=== PATIENT | female | born 1955 | race Caucasian/White ===

== ENCOUNTER → 2017-08-11 10:08 | Outpatient (CLI) | payer OTHER, SELFPAY ==
--- NOTE | 2017-08-11 10:11 | HPBD_ITS ---
STUDY: DUAL ENERGY X-RAY ABSORPTIOMETRY / DXA REASON FOR EXAM: Female, 61 years old. The patient is postmenopausal. Loss of height. TECHNIQUE: Bone Mineral Density (BMD) measurements of lumbar spine and bilateral hips were obtained. COMPARISON: None. FINDINGS: Lumbar Spine (L1-L4): g/cm2 (0.680) / T-score (-4.3) / Z-score (-3.1) Findings are suggestive of osteoporosis with a high fracture risk. Increased kyphosis. Left Femur Total: g/cm2 (0.732) / T-score (-2.2) / Z-score (-1.2) Left Femoral Neck: g/cm2 (0.771) / T-score (-1.9) / Z-score (-0.7) Right Femur Total: g/cm2 (0.754) / T-score (-2.0) / Z-score (-1.1) Right Femoral Neck: g/cm2 (0.789) / T-score (-1.8) / Z-score (-0.5) HPBD/Dexa Bone Density Study (HP) IMPRESSION: The patient is considered osteoporotic as outlined below according to World [place] [employer] Organization (WHO) criteria with a high fracture risk. Reference Information: The T-score is the number of standard deviations above or below the standard which is normal for young adults at their peak bone mineral density. The World Health Organization (WHO) interprets the T-scores as follows: Above -1 Normal bone density Between -1 and -2.5 Osteopenia Equal to / or below -2.5 Osteoporosis As a practical clinical guideline, osteopenia may be graded as follows: Mild -1 through -1.5 Moderate -1.6 through -2.0 Severe -2.1 through -2.4 The Z-score is the number of standard deviations above or below age-matched controls. A Z-score of less than -1.5 would be considered abnormal. References: 1. NIH Osteoporosis and Related Bone Diseases http://www.osteo.org 2. International Society for Clinical Densitometry http://www.iscd.org 3. National Osteoporosis Foundation http://www.nof.org Electronically Signed: Thomas Alan MD at 12:41 EST Tel [phone], Service support ,
--- NOTE | 2017-08-11 10:11 | HPBI_ITS ---
MAMMOGRAPHY - BILATERAL SCREENING REASON FOR EXAM: Female, 61 years old. Routine annual screening examination. PERTINENT HISTORY: Non-contributory. TECHNIQUE: Digital bilateral breast emir (3D mammographic acquisition) in the CC and MLO projections. 2-D mediolateral oblique (MLO) and craniocaudad (CC) views of both breasts were obtained. CAD: Full Field Digital Mammography with Computer Added Detection was performed. COMPARISON: Comparison is made with prior outside examination dated October 31, 2012. FINDINGS: Breast Composition: The breasts are heterogeneously dense, which may obscure small masses. There are no dominant masses or suspicious calcifications. No other significant abnormalities are identified. There has been no significant change since the prior study. HPBI/SCREENING MAMM (CAD), BILAT IMPRESSION: Stable bilateral screening mammogram. Yearly follow-up mammogram recommended. (A) ASSESSMENT CATEGORY: BIRADS Category 1: Negative. A letter regarding these results will be sent to the patient by the facility within 30 days. Approximately 10% of breast cancers are not detected by mammography. A normal mammogram should not delay biopsy of a clinically suspicious abnormality. [id number] Electronically Signed: Thomas Alan MD at 15:27 EST Tel [phone], Service support ,
== END ==
PROVIDERS: Family Provider Family Medicine; PCP Family Medicine; Visit Provider Family Medicine
DX: Z12.31 Encounter for screening mammogram for malignant neoplasm of breast (principal); Z78.0 Asymptomatic menopausal state; M81.0 Age-related osteoporosis without current pathological fracture
CPT/HCPCS: 77063; 77067; 77080

== ENCOUNTER → 2017-08-15 10:28 | Outpatient (CLI) | payer OTHER, SELFPAY ==
--- NOTE | 2017-08-15 10:44 | RAD_ITS ---
STUDY: X-RAY - LUMBAR SPINE REASON FOR EXAM: Female, 61 years old. Pain. TECHNIQUE: 5 view(s) of the lumbar spine were obtained. COMPARISON: None FINDINGS: Normal lumbar lordosis. There is no substantial scoliosis. There is 5 mm anterolisthesis of L3 on L4. Otherwise normal alignment. Normal vertebral bodies and endplates. Moderate to severe loss of disc height at L4-L5. Otherwise mild loss of disc height at all other levels. There is no demonstrated fracture. The soft tissue structures are unremarkable. RAD/L/S Spine Min 4 Views IMPRESSION: No acute abnormality. Degenerative changes. Electronically Signed: Fernando Oropeza MD at 17:09 EST , Service support ,
== END ==
PROVIDERS: Family Provider Family Medicine; PCP Family Medicine; Visit Provider Family Medicine
DX: M54.5 Low back pain (principal)
CPT/HCPCS: 72110

== ENCOUNTER → 2018-02-10 12:35 | Outpatient (CLI) | payer OTHER, SELFPAY ==
--- NOTE | 2018-02-10 12:45 | RAD_ITS ---
STUDY: X-RAY - PELVIS AND BILATERAL HIPS REASON FOR EXAM: Female, 62 years old. Pain. TECHNIQUE: Radiological exam, hip, bilateral, with pelvis when performed; 2 views COMPARISON: None. FINDINGS: There is a non-specific bowel gas pattern. Normal visualized soft tissue structures. Normal bilateral iliac wings, sacroiliac joints and visualized sacrum. Normal bilateral superior and inferior pubic rami. Normal pubic symphysis. Normal bilateral ischial tuberosities. There is a degenerative spur of the inferior medial aspect of the right femoral head. Normal right acetabulum. There is mild articular joint space narrowing of the right hip. There is a degenerative spur of the inferior medial aspect of the left femoral head. Normal left acetabulum. There is mild articular joint space narrowing of the left hip. RAD/Hips B/L min 2 views w/ Pelvis IMPRESSION: Mild degenerative changes of the bilateral hips. Electronically Signed: Elmo Amador MD at 10:07 EDT Tel , Service support ,
== END ==
PROVIDERS: Family Provider Family Medicine; PCP Family Medicine; Visit Provider Family Medicine
DX: M25.559 Pain in unspecified hip (principal)
CPT/HCPCS: 73521

== ENCOUNTER → 2018-03-01 12:08 | Outpatient (CLI) | payer OTHER, SELFPAY ==
[2018-03-01 14:11] LABS: Absolute Lymphocyte Count 1.77 X10^3/ul (0.83-4.51); Absolute Neutrophil Count 2.2 X10^3/uL (2.0-7.7); Basophil# 0.02 X10^3/uL; Basophil% 0.4 % (0-1); Eosinophil# 0.18 X10^3/uL; Eosinophils% 3.9 % (0-5); Hematocrit 42.5 % (37-47); Hemoglobin 14.2 g/dl (12.0-15.0); Lymphocyte # 1.77 X10^3/ul (4.0); Lymphocyte % 38.5 % (19-41); Mean Corp Hgb Conc 33.4 g/gl (32-36); Mean Corpuscular Hgb 29.2 pg (27.0-32.0); Mean Corpuscular Volume 87.4 fL (81-99); Mean Platelet Vol. 9.9 fl (6.2-12.0); Monocyte# 0.43 X10^3/uL; Monocyte% 9.3 % (0-10); Neutrophil % 47.9 % (47-70); Platelet Count 271 K/mm3 (150-450); RBC Distribution Width CV 13.7 % (11.6-14.6); RBC Distribution Width SD 43.6 fl (35.1-43.9); Red Blood Count 4.86 M/mm3 (4.2-5.4); White Blood Count 4.6 K/mm3 (4.4-11.0)
[2018-03-01 14:15] LABS: POSITIVE COUNT NO; POSITIVE DIFFERENTIAL NO; POSITIVE MORPHOLOGY NO
[2018-03-01 14:50] LABS: ALB/GLOB Ratio 1.2 RATIO (0.9-2.4); AST(SGOT) 18 U/L (15-37); Alanine Aminotransfer ALT/SGPT 34 U/L (13-56); Albumin, Serum 4.1 g/dL (3.2-5.0); Alkaline Phosphatase 67 U/L (45-117); Anion Gap 12 (5-15); BUN 17 mg/dL (7-18); BUN/Creat Ratio 33.3 RATIO (10-20); Calcium,Total 9.7 mg/dL (8.5-10.1); Chloride 102 mmol/L (98-107); Creatinine, Serum 0.51 mg/dL (0.55-1.02); EST Glomerular Filtration Rate 130 mL/min (>60); Est Glom Filt Rate - Afr Amer 157 mL/min (>60); Globulin 3.5 g/dL (2.2-4.2); Glucose 85 mg/dL (74-106); Potassium 3.5 mmol/L (3.5-5.1); Protein, Total 7.6 g/dL (6.4-8.2); Sodium Level 140 mmol/L (136-145); Thyroid Stim Hormone (TSH) 0.78 uIU/mL (0.358-3.74)
== END ==
PROVIDERS: Family Provider Family Medicine; PCP Family Medicine; Visit Provider Family Medicine
DX: R11.0 Nausea (principal)
CPT/HCPCS: 36415; 80053; 84443; 85025

== ENCOUNTER 2018-04-14 07:00 | Outpatient (RCR) | payer OTHER, SELFPAY ==
--- NOTE | 2018-02-14 09:00 | HP.PTEVAL ---
Patient's Visit Information GENE NUNEZ is a 62 year old F referred to Physical Therapy by Aleksey Alonso with a diagnosis of B hip pain. Date of Evaluation: 02/14/18 Physical Therapist: Gerardo Tai PT, - Visit Plan Frequency: 2-3x /Week Duration: 4 Weeks Plan: B LE strengthening, core stabilization ex's, balance and proprio, nustep, and HEP - Subjective Subjective: Pt reports she has had B hip pain for a long time. Pt reports she was diagnosed over the years as having hip bursitis, but now her DrFei believes there is more wrong. Pt reports her L hip is the worst. Pt reports she was recently diagnosed with having osteoporosis. 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 Sleep diff secondary to pain. Pt reports walking causes her increased pain. Pt reports her worst pain is in her L groin region. Pt reports she also has LBP that extends into B LE's intermittently. Pt notes she has worked out her whole life, but is unable to secondary to her pain. 1/10 pain in B hips at rest, 9/10 at worst (walking and at night time). Pt notes occasional difficulty with stair negotiation. - Pain B hips Pain Intensity (Out of 10): 1 Pain Intensity Range: 9 - Objective Neuro: Pt is hyposensitive on L5-S1 dermatones. All other B LE sensation is WNL to light touch. B patellar reflex= 2/3. ROM: B LE's are WNL. MMT: B hip flex, IR, and ER= 4-/5. All other LE measurements 5/5 throughout. Leg length: equal bilat. Special testing: Pt has a pos quadrant test bilat indicating hip joint pathology - Goals Goal 1:: Decrease B hip pain x 50% to aid with sleep Goal Time Frame: 2-4 Weeks Goal 2:: Increase B LE strength x 1 grade to aid with stair negotiation Goal Time Frame: 2-4 Weeks Goal 3:: I with HEP Goal Time Frame: 2-4 Weeks - Rehabilitation Potential Physical Therapy Diagnosis: B hip pain, weakness, and limited ambulation secondary to degenerative changes in B hips Rehabilitation Potential: Good - Anticipated Interventions Patient/Client Instruction: Educate patient on: Condition, Plan of Care For the Purpose of:: To improve self management Therapeutic Exercise to Include: Strength training, Endurance training, Balance training, Dynamic Lumbar Stabilization For the Purpose of:: To decrease pain, To increase ROM, To improve muscle performance and motor function Cryotherapy (ice pack, ice massage): Yes Thermo therapy (hot pack): Yes For the Purpose of:: To decrease pain Thank you for the opportunity to evaluate your patient. For Medicare and Medicare HMO plans, please review the plan of care and approve it. It will need to be FAXED BACK to us at [phone] for Medicare purposes. Please let me know if there are questions or concerns regarding this plan of care. Physician Signature: Date:
--- NOTE | 2018-05-24 12:46 | HP.PTDCSUM ---
HP - PT D/C Summary It has been my pleasure to treat GENE NUNEZ under orders from Aleksey Alonso, for the diagnosis of B hip pain for a total of 17 visit(s). Discharge Date: Please see the following information for a summary of their discharge status. - Subjective Subjective: Pt reports she is sore today, probably due to the weather - Pain B hips Pain Intensity (Out of 10): 3 - Overall Improvement % Improvement: 50 - Objective Objective/Function: B LE strength now 5/5 throughout. Pain had been really doing well until this date. now 10/11. pt is I with HEP. Pt is progressing well toward Rx goals - Goals Goal 1:: Decrease B hip pain x 50% to aid with sleep Goal Progress: Progressing Goal 2:: Increase B LE strength x 1 grade to aid with stair negotiation Goal Progress: Goal Met Goal 3:: I with HEP Goal Progress: Goal Met - Plan Plan: Discontinue to HEP - D/C Information If there are questions or concerns regarding this patient's physical therapy, please feel free to call me at [phone]. Thank you for the referral of this patient. Sincerely, Gerardo Tai, PT,
== END 2018-04-14 19:00 | disposition home or self-care (01) ==
LOC: PT 07:00
PROVIDERS: Family Provider Family Medicine; PCP Family Medicine; Visit Provider Family Medicine
DX: M16.0 Bilateral primary osteoarthritis of hip (principal); M25.759 Osteophyte, unspecified hip; M25.559 Pain in unspecified hip
CPT/HCPCS: 97110; 97162; 97530

== ENCOUNTER → 2018-04-19 15:12 | Outpatient (CLI) | payer OTHER, SELFPAY ==
--- NOTE | 2018-04-19 15:25 | MRI_ITS ---
STUDY: MRI LEFT HIP REASON FOR EXAM: Left hip pain for 6 years, no specific injury. TECHNIQUE: Standardized fat and water weighted pulse sequences were obtained in all 3 orthogonal planes. # of Images: 116 COMPARISON: Radiograph 02/10/2018. FINDINGS: There is mild left hip arthrosis with small marginal osteophytes of the femoral head and mild chondral thinning (proton-density sagittal image 9). There is a small left hip joint effusion (inversion recovery coronal images 20, 21). There is a lobulated ganglion cyst at the inferior aspect of the left hip joint (proton-density sagittal images 5, 6) measuring 1.2 cm in length. Normal acetabulum. There is a suspected small tear of the left anterosuperior labrum (proton-density sagittal image 9). Normal femoral head. Normal femoral neck and intratrochanteric region. Normal gluteus minimus, medius and iliopsoas tendons and distal insertions. There is no trochanteric, iliopsoas or iliopectineal bursitis. Normal superior and inferior pubic rami. Normal pubic symphysis. Normal ischial tuberosity. Normal origin of the hamstring tendons. Normal visualized iliac wing, sacroiliac joint, and sacral ala. 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 MRI/Lower Ext Joint Only (Routine) IMPRESSION: Mild left hip arthrosis. Suspected small tear of the left anterosuperior labrum. Small left hip joint effusion. Ganglion cyst at the inferior aspect of the left hip joint. Electronically Signed: Eldon Mathis MD at 8:33 EDT Tel , Service support ,
--- NOTE | 2018-04-19 15:25 | MRI_ITS ---
STUDY: MRI RIGHT HIP REASON FOR EXAM: Right hip pain for 6 years, no specific injury. TECHNIQUE: Standardized fat and water weighted pulse sequences were obtained in all 3 orthogonal planes. # of Images: 203 COMPARISON: Radiograph 02/10/2018. FINDINGS: There is mild right hip arthrosis with small marginal osteophytes of the femoral head, a small focus of subchondral eburnation in the superior medial aspect of the right femoral head (T1 coronal image 18) and mild chondral thinning (proton-density sagittal image 6). Normal acetabulum. Normal labrum. Normal femoral head. Normal femoral neck and intratrochanteric region. Normal gluteus minimus, medius and iliopsoas tendons and distal insertions. There is right iliopsoas bursitis (proton-density sagittal images 16-19; T2 axial images 7-9, 14-19). Normal superior and inferior pubic rami. Normal pubic symphysis. Normal ischial tuberosity. Normal origin of the hamstring tendons. Normal visualized iliac wing, sacroiliac joint, and sacral ala. Normal visualized soft tissue structures of the pelvis. MRI/Lower Ext Joint Only (Routine) IMPRESSION: Mild right hip arthrosis. Right iliopsoas bursitis. Electronically Signed: Eldon Mathis MD at 8:34 EDT Tel , Service support ,
== END ==
PROVIDERS: Family Provider Family Medicine; PCP Family Medicine; Referring Provider Family Medicine
DX: M25.552 Pain in left hip (principal); M25.551 Pain in right hip
CPT/HCPCS: 73721

== ENCOUNTER → 2019-07-18 07:57 | Outpatient (CLI) | payer SELFPAY ==
--- NOTE | 2019-07-18 08:06 | BI_ITS ---
MAMMOGRAPHY - BILATERAL SCREENING REASON FOR EXAM: Female, 63 years old. Routine annual screening examination. PERTINENT HISTORY: Non-contributory. Remote left excisional breast biopsy. TECHNIQUE: Digital bilateral breast yennifer (3D mammographic acquisition) in the CC and MLO projections. 2-D mediolateral oblique (MLO) and craniocaudad (CC) views of both breasts were obtained. CAD: Full Field Digital Mammography with Computer Added Detection was performed. COMPARISON: Comparison is made with prior examination dated August 11, 2017. FINDINGS: Breast Composition: The breasts are heterogeneously dense, which may obscure small masses. I suspect a 1.3 cm well-defined nodule in the retroareolar region of the left breast. Correlation with ultrasound is recommended. No other significant abnormalities are identified. BI/SCREEN MAMM (CAD) W/YENNIFER BILAT IMPRESSION: I suspect a 1.3 cm well-defined nodule in the retroareolar region of the left breast as described. Correlation with ultrasound is recommended. ASSESSMENT CATEGORY: BIRADS Category 0: Incomplete. Need additional imaging evaluation. A letter regarding these results will be sent to the patient by the facility within 30 days. Approximately 10% of breast cancers are not detected by mammography. A normal mammogram should not delay biopsy of a clinically suspicious abnormality. [id number] Electronically Signed: Thomas Alan, at 9:38 EST , Service support ,
== END ==
PROVIDERS: Family Provider Family Medicine; PCP Family Medicine; Referring Provider Family Medicine; Visit Provider Family Medicine
DX: Z12.31 Encounter for screening mammogram for malignant neoplasm of breast (principal)
CPT/HCPCS: 77063; 77067

== ENCOUNTER → 2019-07-19 09:27 | Outpatient (CLI) | payer SELFPAY ==
--- NOTE | 2019-07-19 09:31 | US_ITS ---
STUDY: ULTRASOUND BREAST - LEFT REASON FOR EXAM: Female, 63 years old. Abnormal screening mammogram. TECHNIQUE: Axial and longitudinal images of the LEFT breast were performed with a high resolution ultrasound transducer. # OF IMAGES: 30 COMPARISON: Comparison is made with prior mammogram dated July 18, 2019. FINDINGS: LEFT Breast: The mammographic abnormality corresponds to a 7 mm x 8 mm x 3 mm hypoechoic solid nodule in the retroareolar region of the breast. This most likely represents a fibroadenoma. It is also evidence of a cyst at the 3:00 position of the breast are 2 sinus from nipple measuring 4 mm x 5 mm x 3 mm. There is also evidence of dilatation of the retroareolar ducts. US/Breast Limited Unilateral IMPRESSION: 7 mm x 8 mm x 3 mm hypoechoic solid nodule in the retroareolar region of the rest. This most likely related to fibroadenoma. Biopsy recommended. ASSESSMENT CATEGORY: BIRADS Category 4: Suspicious - Biopsy Should Be Considered. A letter regarding these results will be sent to the patient by the facility within 30 days. Electronically Signed: Thomas Alan, at 12:54 EST , Service support ,
== END ==
PROVIDERS: Family Provider Family Medicine; PCP Family Medicine; Referring Provider Family Medicine; Visit Provider Family Medicine
DX: R92.8 Other abnormal and inconclusive findings on diagnostic imaging of breast (principal)
CPT/HCPCS: 76642

== ENCOUNTER → 2019-07-30 12:14 | Outpatient (CLI) | payer SELFPAY ==
[2019-07-30 11:41] VITALS: BMI 21.9
--- NOTE | 2019-07-30 11:45 | BRBX_PTH ---
PATIENT: GENE NUNEZ LOC: [facility] U#:[id number] AGE/SX: 69/F ROOM: RE07/30/[address]: Dr. Kd Murphy MD : [id number] BED: DIS: SPEC #: [id number] RECD: 07/30/19 15:49 STATUS: MANNIE MARK #: [id number] CT: 07/30/19 11:[address]: Kd Murphy DEPT: SURGICAL PATHOLOGY RECD BY: Michael Harris ENTERED: 07/31/19 09:52 SP TYPE: BREAST BX OTHR DR: Dr. Aleksey Alonso MD Tissues: Left breast, NOS Procedures: Surgery Specimen Level IV HEADER OPERATION: Left breast biopsy PRE-OP DIAGNOSIS: Abnormal left breast ultrasound TISSUE SUBMITTED: Left breast tissue ISCHEMIC TIME: <30 seconds FIXATION TIME: 31.5 hours MICROSCOPIC DIAGNOSIS Left breast, core biopsy: Hyalinized fibroadenoma with focal fibrocystic changes. Negative for atypia or malignancy. CHRISTEN:kurt 08/01/19 COMMENT Correlation with clinical, radiologic findings and appropriate follow up are necessary. MICROSCOPIC DESCRIPTION Slides are reviewed. GROSS DESCRIPTION Received in fixative is one container labeled with the patient's name and designated left breast. The specimen consists of multiple elongated fragments of mo-yellow fibroadipose tissue that in aggregate measure 2 x 0.3 x 0.1 cm. The entire specimen is submitted in one cassette. / CHRISTEN:kurt 07/31/19 TC:1 CPT: 75121
--- NOTE | 2019-07-30 12:16 | BI_ITS ---
MAMMOGRAPHY - UNILATERAL DIAGNOSTIC: LEFT BREAST REASON FOR EXAM: Female, 63 years old. Clip placement following ultrasound-guided breast biopsy of the left breast. PERTINENT HISTORY: Ultrasound guided left breast biopsy on July 19, 2019. TECHNIQUE: Mediolateral oblique and craniocaudad views of the left breast were obtained. CAD: Full Field Digital Mammography with Computer Added Detection was performed. COMPARISON: Comparison is made with prior mammogram dated July 18, 2019. FINDINGS: Breast Composition: The breasts are heterogeneously dense, which may obscure small masses. There are no dominant masses or suspicious calcifications. A tissue clip marker is seen within the retroareolar region of the left breast. The nodular density has decreased in size. No other significant abnormalities are identified. BI/DIAG MAMM W/CAD, UNILAT IMPRESSION: A tissue clip marker is seen in the retroareolar region of the left breast. One year follow-up mammogram recommended. (A) ASSESSMENT CATEGORY: BIRADS Category 2: Benign. A letter regarding these results will be sent to the patient by the facility within 30 days. Approximately 10% of breast cancers are not detected by mammography. A normal mammogram should not delay biopsy of a clinically suspicious abnormality. Electronically Signed: Thomas Alan, at 13:17 EST , Service support ,
== END ==
PROVIDERS: PCP Family Medicine; Referring Provider Surgery; Visit Provider Surgery
DX: D24.2 Benign neoplasm of left breast (principal); Z98.890 Other specified postprocedural states
CPT/HCPCS: 77065; 88305

== ENCOUNTER → 2020-07-21 13:17 | Outpatient (CLI) | payer SELFPAY ==
[2019-07-30 11:41] VITALS: BMI 21.9
[2020-07-21 16:07] LABS: Uric Acid 5.3 mg/dL (2.6-6.0)
== END ==
PROVIDERS: PCP Family Medicine; Referring Provider Family Medicine; Visit Provider Family Medicine
DX: M25.559 Pain in unspecified hip (principal)
CPT/HCPCS: 36415; 84550

== ENCOUNTER → 2020-08-05 10:08 | Outpatient (CLI) | payer SELFPAY ==
[2019-07-30 11:41] VITALS: BMI 21.9
--- NOTE | 2020-08-05 10:18 | BI_ITS ---
MAMMOGRAPHY - BILATERAL SCREENING REASON FOR EXAM: Female, 64 years old. Routine annual screening examination. PERTINENT HISTORY: Non-contributory. Remote left excisional breast biopsy. TECHNIQUE: Digital bilateral breast yennifer (3D mammographic acquisition) in the CC and MLO projections. 2-D mediolateral oblique (MLO) and craniocaudad (CC) views of both breasts were obtained. CAD: Full Field Digital Mammography with Computer Added Detection was performed. COMPARISON: Comparison is made with prior study dated 07/18/2019 and 08/11/2017. FINDINGS: Breast Composition: The breasts are heterogeneously dense, which may obscure small masses. A tissue clip marker is once again seen in the retroareolar region of the left breast. Stable 4 mm x 5 mm well-defined nodule at the 3 o''clock position of the left breast. This was previously seen and demonstrated to be a cyst on ultrasound. No other significant abnormalities are identified. There has been no significant change since the prior study. BI/SCRN MAMM (CAD)W/YENNIFER BILAT IMPRESSION: Stable bilateral screening mammogram. Yearly follow-up mammogram recommended. (A) ASSESSMENT CATEGORY: BIRADS Category 2: Benign. A letter regarding these results will be sent to the patient by the facility within 30 days. Approximately 10% of breast cancers are not detected by mammography. A normal mammogram should not delay biopsy of a clinically suspicious abnormality. [id number] Electronically Signed: Thomas Alan MD at 10:53 EST , Service support ,
== END ==
PROVIDERS: PCP Family Medicine; Referring Provider Surgery; Visit Provider Surgery
DX: Z12.31 Encounter for screening mammogram for malignant neoplasm of breast (principal)
CPT/HCPCS: 77063; 77067

== ENCOUNTER → 2020-10-03 17:25 | Outpatient (CLI) | payer SELFPAY | PROVIDERS: PCP Family Medicine; Referring Provider Family Medicine; Visit Provider Family Medicine | DX: R39.15 Urgency of urination (principal) | CPT/HCPCS: 87086; 87088 ==

== ENCOUNTER 2021-01-02 07:20 | Day surgery (SDC) | payer SELFPAY ==
[2020-12-04 05:33] VITALS: BMI 21.9
[2020-12-15 08:18] VITALS: BMI 21.7
[2021-01-02] VITALS (13 sets, daily range): BP systolic 100–125; BP diastolic 68–89; PULSE 66–78; RESP 14–16; TEMP 36.2–36.5; O2SAT 97–100; BMI 20.9
[2021-01-02] MEDS: Lactated Ringers 1,000 ML 100 ML IV (08:05)
--- NOTE | 2021-01-02 08:08 | HP.PCM_ITS ---
History and Physical Date of Admission: 01/02/21 Intake Visit Reasons: C-Scope IBS/Abdominal Pain & Diverticulitis Chief Complaint: colonoscopy--hx polyps Applications Trainer Required: No Is patient in pain?: No Allergies NSAIDS (Non-Steroidal Anti-Inflamma Adverse Reaction (Verified 12/04/20 10:22) Other Sulfa (Sulfonamide Antibiotics) Adverse Reaction (Verified 12/04/20 10:22) Other Medications fexofenadine 60 mg tablet 60 mg PO DAILY tab 07/27/19 [History Confirmed 12/04/20] indapamide 1.25 mg tablet mg PO 07/27/19 [History Confirmed 12/04/20] trazodone 50 mg tablet 50 mg PO DAILY PRN tab 12/04/20 [History Confirmed 12/04/20] Is last menstrual period known: No Post menopausal: Yes Patient : No PFSH Medical History (Updated 12/04/20 @ 09:34 by Reina Ramos) Abnormal ultrasound of breast Asthma Celiac disease Diverticulosis Fibroadenoma of left breast Fibrocystic change of breast GERD (gastroesophageal reflux disease) History of colon polyps History of colonic polyps History of esophageal ulcer IBS (irritable bowel syndrome) Osteoarthritis Surgical History History of bladder suspension procedure History of section History of colonoscopy (~2017) History of left breast biopsy history of rectal prolapse History of total hysterectomy Family History (Updated 12/04/20 @ 10:21 by Reina Ramos) Father Cancer Social History Smoking Status: Former smoker HPI HPI HPI: GENE NUNEZ, is a 64 F who presents to the office today for surgical consultation regarding abdominal pain. Her most recent colonoscopy was January 18, 2017. Findings at time included a small ascending colon polyp. Pancolonic diverticulosis was identified. The patient is being referred by Dr. Aleksey Alonso and a written copy of my surgical consult recommendations will return to him. The patient states that in the past she has had a history of multiple previous polyps. She states that more recently it has been recommended to her by Dr. Daljit Kelly that she have more frequent exams and it was recommended to her that she have one again at 3 years. Her colonoscopy of January 18 demonstrated a tubular adenoma of the ascending colon as well as diverticulosis. The patient was treated with 4 mg of Versed and 75 mcg of fentanyl for that procedure. She states she has not had previous difficulties with the exams. Fortunately she denies bright red blood per rectum or melena. No history of COVID-19. No change in bowel habits. No history of DVT. ROS General General: No weight change, appetite, fatigue, colon cancer, breast cancer or weakness HEENT HEENT: No difficulty swallowing, eye injury, eye surgery, swollen glands or hoarseness Endo Endocrine: No thyroid disease, diabetes mellitus, thyroid cancer, Hair loss, heat intolerance or cold intolerance Musc Musculoskeletal: Yes back problems and arthritis; No rheumatoid arthritis, gout or joint pain Cardio Cardiovascular: No murmur, pacemaker, heart disease, atrial fibrillation, high blood pressure, heart attack, heart stent, palpitations, shortness of breat with exertion or chest pain Psych Psychiatric: No depression, anxiety or hearing voices Resp Respiratory: No shortness of breath, No sleep apnea, No cough, No COPD, Yes asthma, No emphysema and No wheezing Gastro Gastrointestinal: No abdominal pain, No nausea or vomiting, No diarrhea, No constipation, No blood in stool, No acid reflux, No hemorrhoids, No ulcers, No gallbladder problem and No black,tarry stools Kleber Hematologic: No blood thinners, No blood disorders, No bleeding, No anemia and No blood clots Neuro Neurologic: No weakness Exam Const General: cooperative, comfortable and no acute distress Nutritional Appearance: average body habitus Orientation: alert and awake [facility] Head: normal to inspection Resp Effort & Inspection: normal respiratory effort Auscultation: clear to auscultation bilaterally Cardio Rate: regular rate Rhythm: regular rhythm GI Palpation: soft and no hepatosplenomegaly Auscultation: normal bowel sounds Musc Cervical Spine: normal cervical lordosis Skin General: no rashes or lesions noted Neuro General: patient alert and patient awake Extrem General: no calf tenderness bilaterally Psych Appearance: grossly normal COVID (Procedure Consent) Procedure Criteria Procedure Criteria: Yes Elective The surgeon/proceduralist and patient have discussed in detail the risk of exposure to and/or potential harm posed by the COVID-19 virus with having a surgery/procedure at this time versus the risk of delaying the surgery/procedure. It is not possible to know either the risk of delaying the surgery or procedure or chance of getting an infection with perfect accuracy, but a joint decision was made between the patient and the surgeon/proceduralist to proceed at this time with the scheduled surgery/procedure as indicated on the consent form. Assessment and Plan Assessment and Plan (1) Personal history of colonic polyps: Plan Details Additional Comments: I recommended the patient a colonoscopy with possible biopsy or polypectomy as indicated. She is aware of the technique, benefit, risk, alternatives. She has had an opportunity to ask and have questions answered. She is previously performed well with IV sedation. She is not on any anticoagulation. In addition she states that she has upcoming back and hip surgery. She is seeking appropriate surgical consultation in that regard. I appreciate the opportunity of assisting with her surgical care Copy: Dr. Aleksey Murphy M.D., F.A.C.S. I have re-examined the patient. There are no clinical changes since date of exam.
[2021-01-02] MEDS: Midazolam 5 MG/ML Syringe (09:02)
--- NOTE | 2021-01-02 09:25 | OP.CCLET_ITS ---
01/02/2021 Aleksey Alonso MD [address] [place] [address] Re : Colonoscopy procedure for Amanda Faye Dear Dr. Alonso This procedure was performed on Saturday, January 02, 2021. My impressions and recommendations are as follows: Impressions : - Hemorrhoids found on perianal exam. - Diverticulosis in the entire examined colon. - Tortuous colon. - No specimens collected. Recommendations : - Discharge patient to home. - Resume previous diet. - Continue present medications. - Repeat colonoscopy in 5 years for surveillance. My findings are described in the full procedure note, which is enclosed. If I can be of further assistance, please feel free to contact me at Doctor phone number(s): Work: . Sincerely, Kd Murphy MD 01/02/2021 9:24:38 AM This report has been signed electronically.
--- NOTE | 2021-01-02 09:25 | OP.COLON_ITS ---
Patient Name: Amanda Faye Procedure Date: 01/02/2021 8:51 AM Date of : 1955 Age: 65 Procedure: Colonoscopy Indications: High risk colon cancer surveillance: Personal history of colonic polyps Providers: Kd Murphy MD Referring MD: Aleksey Alonso MD Medicines: Midazolam 4 mg IV, Meperidine 100 mg IV Patient Profile: Last Colonoscopy: January 2017. Complications: No immediate complications. Procedure: Pre-Anesthesia Assessment: - Prior to the procedure, a History and Physical was performed, and patient medications and allergies were reviewed. The patient's tolerance of previous anesthesia was also reviewed. The risks and benefits of the procedure and the sedation options and risks were discussed with the patient. All questions were answered, and informed consent was obtained. Prior Anticoagulants: The patient has taken no previous anticoagulant or antiplatelet agents. ASA Grade Assessment: II - A patient with mild systemic disease. After reviewing the risks and benefits, the patient was deemed in satisfactory condition to undergo the procedure. After I obtained informed consent, the scope was passed under direct vision. Throughout the procedure, the patient's blood pressure, pulse, and oxygen saturations were monitored continuously. The Colonoscope was introduced through the anus and advanced to the cecum, identified by appendiceal orifice and ileocecal valve. The colonoscopy was performed without difficulty. The patient tolerated the procedure well. The quality of the bowel preparation was good. The ileocecal valve and the appendiceal orifice were photographed. Moderate Sedation: Moderate (conscious) sedation was personally administered by the endoscopist. The following parameters were monitored: oxygen saturation, heart rate, blood pressure, and response to care. Total physician intraservice time was 15 minutes. Scope In: 9:02:08 AM Scope Withdrawal Time 0 hours 9 minutes 3 seconds Scope Out: 9:19:33 AM Total Procedure Duration Time 0 hours 17 minutes 25 seconds Findings: Hemorrhoids were found on perianal exam. Multiple diverticula were found in the entire colon. The colon (entire examined portion) was moderately tortuous. Impression: - Hemorrhoids found on perianal exam. - Diverticulosis in the entire examined colon. - Tortuous colon. - No specimens collected. Recommendation: - Discharge patient to home. - Resume previous diet. - Continue present medications. - Repeat colonoscopy in 5 years for surveillance. Procedure Code(s): --- Professional --- 89371, Colonoscopy, flexible; diagnostic, including collection of specimen(s) by brushing or washing, when performed (separate procedure) 57006, 59, Moderate sedation services provided by the same physician or other qualified health home care attendant performing the diagnostic or therapeutic service that the sedation supports, requiring the presence of an independent trained observer to assist in the monitoring of the patient's level of consciousness and physiological status; initial 15 minutes of intraservice time, patient age 5 years or older Diagnosis Code(s): --- Professional --- Z86.010, Personal history of colonic polyps K64.9, Unspecified hemorrhoids K57.30, Diverticulosis of large intestine without perforation or abscess without bleeding Q43.8, Other specified congenital malformations of intestine CPT copyright 2017 [employer]. All rights reserved. The codes documented in this report are preliminary and upon outside sales engineer review may be revised to meet current compliance requirements. Kd Murphy MD 01/02/2021 9:24:38 AM This report has been signed electronically. Number of Addenda: 0 Note Initiated On: 01/02/2021 8:51 AM
== END 2021-01-02 10:42 ==
LOC: EN 07:25 → AC 07:26
PROVIDERS: PCP Family Medicine; Referring Provider Family Medicine; Visit Provider Surgery
PROC: 0DJD8ZZ Inspection of Lower Intestinal Tract, Via Natural or Artificial Opening Endoscopic (ICD-10-PCS; CPT 45378; principal; 2021-01-02 08:25)
DX: Z12.11 Encounter for screening for malignant neoplasm of colon (principal); K57.30 Diverticulosis of large intestine without perforation or abscess without bleeding; K64.9 Unspecified hemorrhoids; J45.909 Unspecified asthma, uncomplicated; Z79.899 Other long term (current) drug therapy; Z78.0 Asymptomatic menopausal state; Z87.19 Personal history of other diseases of the digestive system; Z87.891 Personal history of nicotine dependence
CPT/HCPCS: 45378; 99152; 99153; J7120

== ENCOUNTER → 2021-01-06 07:37 | Outpatient (CLI) | payer SELFPAY ==
[2020-12-15 08:18] VITALS: BMI 21.7
[2021-01-02 07:49] VITALS: BMI 20.9
--- NOTE | 2021-01-06 07:39 | MRI_ITS ---
STUDY: MRI LUMBAR SPINE WITHOUT CONTRAST REASON FOR EXAM: Female, 65 years old. lbp, left leg pain TECHNIQUE: Standardized fat and water weighted pulse sequences were obtained in the sagittal and axial planes. COMPARISON: None FINDINGS: T12-L1: Normal endplates. Normal disc height, hydration and morphology. Normal bilateral facet joints. Normal central canal and bilateral lateral recesses. Normal bilateral intervertebral neural foramina. Normal lumbar lordosis. There is no substantial scoliosis. Normal conus medullaris that terminates at the L1. L1-2: Normal endplates. Normal disc height, hydration and morphology. Normal bilateral facet joints. Normal central canal and bilateral lateral recesses. Normal bilateral intervertebral neural foramina. L2-3: Moderate left facet hypertrophy and mild right facet hypertrophy with moderate ligament flavum hypertrophy. Mild bilobed disc protrusion produces mild spinal stenosis and mild bilateral neural foraminal stenosis. L3-4: Severe bilateral facet hypertrophy and moderate ligament flavum hypertrophy. 2 mm of anterolisthesis of L3 on L4 with a mild broad disc protrusion produces mild spinal stenosis and mild bilateral neural foraminal stenosis. L4-5: Mild bilateral facet hypertrophy and ligament flavum hypertrophy. Mild broad disc protrusion produces mild spinal stenosis but moderate bilateral neural foraminal stenosis with abutment of the L4 nerve roots bilaterally. L5-S1: Normal endplates. Normal disc height, hydration and morphology. Normal bilateral facet joints. Normal central canal and bilateral lateral recesses. Normal bilateral intervertebral neural foramina. Normal visualized sacral ala. Normal visualized paraspinous soft tissue structures. MRI/Spine Lumbar (Routine) IMPRESSION: Multilevel degenerative changes, as described above. Electronically Signed: Daljit Bradley MD at 18:02 EDT Tel , Service support ,
== END ==
PROVIDERS: PCP Family Medicine; Referring Provider Orthopaedic Surgery; Visit Provider Orthopaedic Surgery
DX: M48.061 Spinal stenosis, lumbar region without neurogenic claudication (principal)
CPT/HCPCS: 72148

== ENCOUNTER → 2021-05-29 14:39 | Outpatient (CLI) | payer SELFPAY ==
[2021-05-29 17:31] LABS: Absolute Lymphocyte Count 1.26 X10^3/uL (0.83-4.51); Absolute Neutrophil Count 2.6 X10^3/uL (2.0-7.7); Basophil# 0.02 X10^3/uL; Basophil% 0.4 % (0-1); Eosinophil# 0.12 X10^3/uL; Eosinophils% 2.7 % (0-5); Hematocrit 39.2 % (37-47); Hemoglobin 13.4 g/dL (12.0-15.0); Lymphocyte # 1.26 X10^3/ul (0.83-4.51); Lymphocyte % 28.1 % (19-41); Mean Corp Hgb Conc 34.2 g/dL (32-36); Mean Corpuscular Hgb 29.6 pg (27.0-32.0); Mean Corpuscular Volume 86.7 fL (81-99); Mean Platelet Vol. 9.5 fl (6.2-12.0); Monocyte# 0.47 X10^3/uL; Monocyte% 10.5 % (0-10); NRBC Flagged by Analyzer 0 % (0-5); Neutrophil # 2.59 X10^3/uL (2.7-7.7); Neutrophil % 57.9 % (47-70); Platelet Count 284 K/mm3 (150-450); RBC Distribution Width CV 13.2 % (11.6-14.6); RBC Distribution Width SD 41.1 fl (35.1-43.9); Red Blood Count 4.52 M/mm3 (4.2-5.4); White Blood Count 4.5 K/mm3 (4.4-11.0)
[2021-05-29 18:03] LABS: Anion Gap 6 (5-15); BUN 18 mg/dL (7-18); BUN/Creat Ratio 25.3 RATIO (10-20); Calcium,Total 9.7 mg/dL (8.5-10.1); Chloride 104 mmol/L (98-107); Cholesterol 197 mg/dL (200); Creatinine, Serum 0.71 mg/dL (0.55-1.02); EST Glomerular Filtration Rate 88 mL/min (>60); Est Glom Filt Rate - Afr Amer 106 mL/min (>60); Glucose 132 mg/dL (74-106); High Density Lipoprotein 59 mg/dL; Potassium 3.5 mmol/L (3.5-5.1); Sodium Level 140 mmol/L (136-145); Thyroid Stim Hormone (TSH) 0.48 uIU/mL (0.358-3.74); Triglycerides 160 mg/dL; Very Low Density Lipoprotein 32 mg/dL (5-40)
== END ==
PROVIDERS: PCP Family Medicine; Referring Provider Family Medicine; Visit Provider Family Medicine
DX: Z00.00 Encounter for general adult medical examination without abnormal findings (principal)
CPT/HCPCS: 36415; 80048; 80061; 84443; 85025

== ENCOUNTER → 2021-06-01 11:12 | Outpatient (CLI) | payer SELFPAY ==
--- NOTE | 2021-06-01 11:16 | EKG12_ITS ---
Test Reason : PRE-OP Blood Pressure : / mmHG Vent. Rate : 074 BPM Atrial Rate : 074 BPM P-R Int : 138 ms QRS Dur : 086 ms QT Int : 382 ms P-R-T Axes : 034 039 030 degrees QTc Int : 424 ms Normal sinus rhythm Normal ECG Confirmed by CANDIDO LANE, JUANA ([id number]), design editor EMILY GALINDO ([id number]) on 06/02/2021 10:28:03 AM Referred By: HARRY Confirmed By:JUANA REY MD
== END ==
PROVIDERS: PCP Family Medicine; Referring Provider Physician Assistant; Visit Provider Physician Assistant
DX: Z01.810 Encounter for preprocedural cardiovascular examination (principal); Z01.811 Encounter for preprocedural respiratory examination; Z01.812 Encounter for preprocedural laboratory examination
CPT/HCPCS: 93005

== ENCOUNTER → 2021-06-03 09:52 | Outpatient (CLI) | payer SELFPAY ==
--- NOTE | 2021-06-03 09:54 | RAD_ITS ---
STUDY: X-RAY CHEST REASON FOR EXAM: Female, 65 years old. Preop for hip surgery TECHNIQUE: PA and lateral views of the chest. COMPARISON: None. FINDINGS: Lungs are expanded with scattered calcified granulomata. No superimposed infiltrate or effusion. There is no demonstrated pleural abnormality. Normal size heart. Normal mediastinum and twyla. Normal visualized pulmonary arteries. Normal visualized aortic arch and descending thoracic aorta. There are diffuse degenerative changes of the visualized thoracic spine. Normal visualized ribs, clavicles, and shoulders. There is no demonstrated abnormality of the visualized soft tissue structures of the upper abdomen. RAD/Chest PA and Lateral IMPRESSION: No acute pulmonary process Electronically Signed: Jose Madera MD at 10:24 EST , Service support ,
== END ==
PROVIDERS: PCP Family Medicine; Referring Provider Physician Assistant; Visit Provider Physician Assistant
DX: Z01.818 Encounter for other preprocedural examination (principal)
CPT/HCPCS: 71046

== ENCOUNTER → 2021-06-05 | Outpatient (CLI) | payer SELFPAY ==
--- NOTE | 2021-06-05 | HIP_PTH ---
PATIENT: GENE NUNEZ LOC: [facility] U#:[id number] AGE/SX: 65/F ROOM: RE06/05/[address]: Dr. Teddy Ellsworth MD : 1955 BED: DIS: 06/05/2021 SPEC #: [id number] RECD: 06/05/21 15:02 STATUS: MANNIE BOYDYandy #: [id number] CT: 06/05/21 00:[address]: Teddy Ellsworth DEPT: SURGICAL PATHOLOGY RECD BY: Bautista May ENTERED: 06/08/21 10:37 SP TYPE: TOTAL HIP OTHR DR: Dr. Aleksey Alonso MD [facility] Tissues: Hip, NOS Procedures: Decalcification bone/plaque Surgery Specimen Level IV HEADER OPERATION: Left total hip arthroplasty PRE-OP DIAGNOSIS: Left hip primary osteoarthritis TISSUE SUBMITTED: Femur head, bone and soft tissue, left hip MICROSCOPIC DIAGNOSIS Bone and soft tissue of left hip, total hip resection: Severe degenerative joint disease. Mild synovial hyperplasia. AM:kurt 06/11/2021 MICROSCOPIC DESCRIPTION Slides are reviewed. GROSS DESCRIPTION Received is one container labeled with the patient's name and designated bone and soft tissue hip, left. The specimen consists of a mo femoral head with portion of femoral neck. The femoral head measures 4.5 x 5 x 4.5 cm and the femoral neck measures up to 2 cm in length. The articular surface displays prominent osteophyte formation, eburnation and bone erosion. Also present in the specimen container are multiple irregular fragments of bone reamings and pink-yellow soft tissue measuring in aggregate 7 x 7 x 2 cm. Coal Equipment Operator sections are submitted in two cassettes as follows: 1 - soft tissue, 2 - bone after decalcification. / SJ:kurt 06/08/21 TC:5 [facility]: [id number]
== END | disposition home or self-care (01) ==
LOC: LABSPEC 15:17
PROVIDERS: PCP Family Medicine; Visit Provider Orthopaedic Surgery
DX: M16.12 Unilateral primary osteoarthritis, left hip (principal)
CPT/HCPCS: 88305; 88311

== ENCOUNTER → 2022-07-17 | Outpatient (CLI) | payer MEDICARE, SELFPAY ==
--- NOTE | 2022-07-17 08:17 | MRI_ITS ---
STUDY: MRI CERVICAL SPINE WITHOUT CONTRAST REASON FOR EXAM: Female, 66 years old. SPINAL STENOSIS,CERVICAL REGION;RADICULOPATHY, CERVICAL REGION TECHNIQUE: Standardized fat and water weighted pulse sequences were obtained in the sagittal and axial planes. COMPARISON: None FINDINGS: Normal foramen magnum and brainstem-cervical cord junction. Normal craniovertebral junction. Normal anterior atlantoaxial articulation. Normal odontoid process. There is reversal of the normal cervical lordosis. Normal vertebral bodies and posterior osseous elements. C2-3: Normal endplates. Normal disc height, signal and morphology. Normal central canal and intervertebral neural foramina. C3-4: Normal endplates. Decreased disc height, signal and morphology. Normal central canal and narrowed left intervertebral neural foramina. C4-5: Normal endplates. Decreased disc height, signal and morphology. Normal central canal and bilateral narrowed intervertebral neural foramina. C5-6: Moderate broad-based posterior disc marginal osteophyte encroaching upon the cord and causing moderate narrowing of the neural foramina bilaterally. C6-7: Moderate broad-based posterior disc marginal osteophyte encroaching upon the cord and causing moderate narrowing of the neural foramina bilaterally. C7-T1: Normal endplates. Normal disc height, signal and morphology. Normal central canal and intervertebral neural foramina. t2-t3: T1 and T2 lengthening within the vertebral bodies. Normal cervical cord. Normal visualized soft tissue structures. MRI/Spine Cervical (Routine) IMPRESSION: Multilevel neural foraminal narrowing as above. Probable reactive spondylosis T2-T3. Electronically Signed: Sami Dallas MD at 0:06 EST ,
== END | disposition home or self-care (01) ==
PROVIDERS: PCP Family Medicine; Referring Provider Orthopaedic Surgery; Visit Provider Orthopaedic Surgery
DX: M48.02 Spinal stenosis, cervical region (principal); M50.122 Cervical disc disorder at C5-C6 level with radiculopathy; M47.22 Other spondylosis with radiculopathy, cervical region; M50.30 Other cervical disc degeneration, unspecified cervical region
CPT/HCPCS: 72141

== ENCOUNTER → 2022-07-21 | Outpatient (CLI) | payer MEDICARE, SELFPAY | END | disposition home or self-care (01) | LOC: LABSPEC 12:46 | PROVIDERS: PCP Family Medicine; Referring Provider Family Medicine; Visit Provider Family Medicine | DX: R31.9 Hematuria, unspecified (principal) | CPT/HCPCS: 87086; 87088 ==

== ENCOUNTER 2022-10-04 11:30 | Outpatient (RCR) | payer MEDICARE, SELFPAY ==
--- NOTE | 2022-09-27 14:16 | HP.PTEVAL ---
Patient's Visit Information GENE NUNEZ is a 66 year old F referred to Physical Therapy by Dr. Marvel Horowitz DO with a diagnosis of SPINAL STENOSIS ,CERVICAL ,CERVICAL DISC DEGENERATION. Date of Evaluation: 09/27/22 Physical Therapist: Richard Serrato PT, Cert MDT, OCS - Visit Plan Frequency: 2x /Week Duration: 4 Weeks Plan: PRECAUTION: osteoporosis. PT INTERVETION CERVICAL POSTURAL EX'S ,STRENGTHENING AND ACTIVITY MODIFICATION - Subjective This 66 y/o female presents to physical therapy with cervical pain with radicular symptoms. Patient initially had arm symptoms but is better . Seen DR Orthopedic Dr Horowitz and seen neurologist in [place] not candidate due severity of osteoporosis for surgery from DR Velasco. Patient had had MRI and x-rays showed stenosis and has severe osteoporosis. Patient taking infusion and medication for osteoporosis. Pain located right cervical and neck. Patient described stiffness and ache in arm and occasional sharp pain. Aggravating reading ,turning ,flexion and driving. Alleviating factors ex's and medication. Meloxicam for inflammation. c/o paresthesia/tingling in arms. Patient has HARGR[place] ,denies dizziness/nausea. Symptoms not affects sleeping. Patient goals to learn ex's to manage symptoms. Patient did have a fall last week mechanical hit head. PRECAUTIONS: osteoporosis. SOCIAL: . VOCATION: retired - Pain Bilateral Neck Pain Intensity (Out of 10): 2 Pain Intensity Range: 10 - Objective POSTURE: mild rounded shoulders head foreward. PALAPTION: tender UT/levator/scalene. NEURO: c/o paresthesia/tingling in arms ,reflexes C5-6-7 2/3. AROM: BUE WFL. MMT: grossly 4/5 ,shoulders 4-/5. CERVICAL ROM: flexion min loss ,extension mod loss rotation/lateral flexion mod loss - Special Tests C/S Radiculapathy - Left Upper limb tension test: Negative C/S Radiculapathy - Right Upper limb tension test: Negative C/S Radiculapathy - Left Spurlings: Negative C/S Radiculapathy - Right Spurlings: Negative C/S Radiculapathy - Left Cervical distraction: Negative C/S Radiculapathy - Right Cervical distraction: Negative C/S Radiculapathy - Left Relief test: Negative C/S Radiculapathy - Right Relief test: Negative Sharp Analy: Negative Vertebral Artery Test: Negative Alar Ligament Test: Negative - Balance/Special Test Scores Oswestry Neck Score: 27 - Goals Goal 1:: Patient to be Mod I with HEP Goal Time Frame: 4-6 Weeks Goal 2:: Patient to demonstrate 50% improvement with less to improve function Goal Time Frame: 4-6 Weeks Goal 3:: Patient to improve cervical ROM for function of recovery Goal Time Frame: 4-6 Weeks Goal 4:: Patient to improve neck oswestry by 5 points to improve QOL and unctio Goal Time Frame: 4-6 Weeks - Rehabilitation Potential Physical Therapy Diagnosis: This patient has cervical stenosis with severe osteoporosis with pain ,decrease ROM pain with position and motion testing thus benefit skilled PT Rehabilitation Potential: Good - Anticipated Interventions Patient/Client Instruction: Educate patient on: Condition, Plan of Care For the Purpose of:: To decrease pain, To increase ROM, To improve muscle performance and motor function, To improve ability to perform ADL's, To increase tolerance to activity/condition/position, To improve ability of physical actions for home/community/work/leisure, To improve health of tissue, To decrease soft tissue restriction, To increase flexibility/ROM Therapeutic Exercise to Include: Strength training, Postural training, Flexibilty training, Active ROM, Scapular Strength/Stabilization For the Purpose of:: To decrease swelling/inflammation, To increase ROM, To improve ability to perform ADL's, To increase tolerance to activity/condition/position, To improve ability of physical actions for home/community/work/leisure, To improve health of tissue, To decrease soft tissue restriction, To improve tolerance to ADL's Thank you for the opportunity to evaluate your patient. For Medicare and Medicare HMO plans, please review the plan of care and approve it. It will need to be FAXED BACK to us at [phone] for Medicare purposes. For Medicare only, by signing this I certify the plan of care. Please let me know if there are questions or concerns regarding this plan of care. Physician Signature: Date:
--- NOTE | 2023-01-30 18:31 | HP.PT.NRP ---
Patient Information Patient Information: GENE NUNEZ was seen in my office for initial evaluation on 09/27/22. The following Plan of Care was established for this patient: POC Established Initial Frequency: 2x /Week Initial Duration: 4 Weeks Anticipated Interventions Patient/Client Instruction: Educate patient on: Condition and Plan of Care For the Purpose of:: To decrease pain, To increase ROM, To improve muscle performance and motor function, To improve ability to perform ADL's, To increase tolerance to activity/condition/position, To improve ability of physical actions for home/community/work/leisure, To improve health of tissue, To decrease soft tissue restriction and To increase flexibility/ROM Therapeutic Exercise to Include: Strength training, Postural training, Flexibilty training, Active ROM and Scapular Strength/Stabilization For the Purpose of:: To decrease swelling/inflammation, To increase ROM, To improve ability to perform ADL's, To increase tolerance to activity/condition/position, To improve ability of physical actions for home/community/work/leisure, To improve health of tissue, To decrease soft tissue restriction and To improve tolerance to ADL's Last Seen Last Seen: This patient was last seen in our office . Pertinent comments regarding their Physical therapy will appear below: Patient was seen for PT evaluation and one visit for HEP At this point I will be discontinuing this patient from physical therapy. I would be happy to see this patient again in the future if found appropriate by the physician. Thank you! Richard Serrato, PT, Cert MDT, OCS Balance/Gait/Functional tests Balance/Special Test Scores Oswestry Neck Score: 27
== END 2022-10-04 19:00 | disposition home or self-care (01) ==
LOC: PT 11:30
PROVIDERS: PCP Family Medicine; Referring Provider Orthopaedic Surgery; Visit Provider Orthopaedic Surgery
DX: M48.02 Spinal stenosis, cervical region (principal); M47.22 Other spondylosis with radiculopathy, cervical region; M50.30 Other cervical disc degeneration, unspecified cervical region
CPT/HCPCS: 97110; 97162

== ENCOUNTER → 2023-08-30 | Outpatient (CLI) | payer MEDICARE, SELFPAY ==
--- NOTE | 2023-08-30 09:10 | EKG12_ITS ---
Test Reason : PREOP Blood Pressure : / mmHG Vent. Rate : 074 BPM Atrial Rate : 074 BPM P-R Int : 114 ms QRS Dur : 084 ms QT Int : 360 ms P-R-T Axes : 031 039 041 degrees QTc Int : 399 ms Normal sinus rhythm Normal ECG Confirmed by LE LANE, ADIA ([id number]), newspaper or periodical editor BERNARDA WEINSTEIN ([id number]) on 09/05/2023 10:03:45 AM Referred By: Teddy Ellsworth Confirmed By:SNOW LUJAN MD
--- OUTSIDE RECORDS SUMMARY | 2023-08-30 09:58 | XMS RPT_ITS | CCD ---
Author Name Unknown Address [address] [place] [address] Organization [facility] Care Team Providers Care Typewriter Mechanic Name Role Phone ERIKA, LEIDY T Unavailable Unavailable ERIKA, LEIDY T Unavailable Unavailable ERIKA, LEIDY T Unavailable Unavailable ERIKA, LEIDY T Unavailable Unavailable EMILY NICHOLSON (PA) Unavailable Unavailable ERIKA, ELIDY T Unavailable Unavailable KAT ONEILL Unavailable Unavailable KAT ONEILL Unavailable Unavailable Jordan Gonzalez MD Unavailable JORDAN GONZALEZ Attending Unavailab le PROVIDER, UNKNOWN Referring Unavailable Aleksey Mckinney Primary Care Unavailable JORDAN GONZALEZ Attending Unavailab conchis PROVIDER, UNKNOWN Referring Unavailable Aleksey Mckinney Primary Care Unavailable MD Edward Castillo Attending Provider [phone] Matias Riggins Unavailable Kike Rangel MD Unavailable Aleksey Mckinney MD Primary Care Provider [phone] YOVANY HICKS Attending Unavailable YOVANY HICKS Referring Unavailable ALEKSEY MCKINNEY Primary Care Unavailable ALEKSEY MCKINNEY Primary Care Unavailable YOVANY HICKS Attending Unavailable LACEHLLE DARBY Referring Unavailable ALEKSEY MCKINNEY Primary Care Unavailable YOVANY HICKS Attending Unavailable YOVANY HICKS Referring Unavailable Edward Castillo Attending Unavailable Edward Castillo Admitting Unavailable NO FAMILY, PHYSICIAN Primary Care Unavailable ALEKSEY MCKINNEY Referring Unavailable ALEKSEY MCKINNEY Primary Care Unavailable ALEKSEY MCKINNEY Primary Care Unavailable KELLY MCDANIEL Admitting Unavailable Allergies Allergy Classification Reported Allergen(s) Allergy Type Date of Onset Reaction(s) Facility (1 source) [id number] TARCH; Translations: [SUGAR-PROTEIN- STARCH] Propensity to adverse reactions to drug (disorder) 9 AOF [facility] Repository (1 source) Aspirin Drug Allergy 5 [facility] Work Phone: (4 sources) Ibuprofen Drug Allergy 3 Confusion, Aggressive Behavior [facility] Work Phone: (1 source) Mold Extract; Translations: [MOLD] Drug Allergy 8 [facility] Work Phone: (1 source) Seasonal allergy; Translations: [SEASONAL] allergy to substance 5 [facility] Work Phone: (1 source) NIGHTSHADES drug allergy 8 don't metabolize carbs well [facility] Work Phone: (1 source) PLANT POLLEN drug allergy 8 hay fever [facility] Work Phone: Medications Current Medications Medication Drug Class(es) Dates Sig (Normalized) Sig (Original) albuterol 0.83 mg/ml inhalation solution (3 sources) beta2-Adrenergic Agonist Start: 07-09-2022 Albuterol (2.5 MG/3ML) 0.083% inhalation solution INHALE contents of 1 vial (3mL) via NEBULIZER EVERY 4 HOURS NEEDED 0 07/09/2022 Active ascorbic acid 500 mg chewable tablet (3 sources) Vitamin C take 1 tablet by mouth once daily Ascorbic acid 500 MG tablet Take 1 tablet by mouth daily. 0 Active ciprofloxacin 250 mg oral tablet (4 sources) Quinolone Antimicrobial Start: 03-13-2013 take 1 tablet by mouth once CIPROFLOXACIN 250 MG PO TABS take 1 Tab by mouth Once. 1 Tab 0 03/13/2013 Active Completed/Discontinued Medications Medication Drug Class(es) Dates Sig (Normalized) Sig (Original) aspirin 81 mg delayed release oral tablet (2 sources) Platelet Aggregation Inhibitor, Nonsteroidal Anti-inflammatory Drug Start: 06-19-2018 ASPIRIN ADULT LOW DOSE 81 MG TBEC 1 tablet daily ASPIRIN [id number] Nasra Corsaro MANAGER PRODUCT MARKETING Problems Active Problems Problem Classification Problem Date Documented Date Episodic/Chronic Genitourinary symptoms and ill-defined conditions (3 sources) Female stress incontinence; Translations: [Stress incontinence (female) (male)] Onset: 01-25-2013 01-25-2013 Chronic Immunizations and screening for infectious disease (1 source) Raised antibody titer; Translations: [Raised antibody titer] Onset: 06-17-2022 Episodic Joint disorders and dislocations; trauma-related (3 sources) Other articular cartilage disorders, right hip; Translations: [Other articular cartilage disorders, right hip] Onset: 07-18-2018 07-18-2018 Chronic Joint disorders and dislocations; trauma-related (3 sources) Other articular cartilage disorders, left hip; Translations: [Other articular cartilage disorders, left hip] Onset: 07-18-2018 07-18-2018 Chronic Nutritional deficiencies (2 sources) Vitamin D deficiency, unspecified; Translations: [Vitamin D deficiency, unspecified] Onset: 12-21-2022 Chronic Osteoarthritis (2 sources) Unilateral primary osteoarthritis, left hip; Translations: [Unilateral primary osteoarthritis, left hip] Onset: 08-10-2018 Chronic Osteoporosis (2 sources) Age-related osteoporosis without current pathological fracture; Translations: [Age-related osteoporosis without current pathological fracture] Onset: 12-21-2022 Chronic Other connective tissue disease (2 sources) Other specified enthesopathies of left lower limb, excluding foot; Translations: [Oth enthesopathies of left lower limb, excluding foot] Onset: 08-10-2018 Episodic Other connective tissue disease (2 sources) Other specified soft tissue disorders; Translations: [Other specified soft tissue disorders] Onset: 03-28-2023 Episodic Other endocrine disorders (2 sources) Secondary hyperparathyroidism, not elsewhere classified; Translations: [Secondary hyperparathyroidism, not elsewhere classified] Onset: 12-21-2022 Chronic Prolapse of female genital organs (3 sources) Disorder of rectum; Translations: [Rectocele] Onset: 03-01-2013 03-01-2013 Chronic Spondylosis; intervertebral disc disorders; other back problems (6 sources) Cervical spondylosis; Translations: [Other spondylosis with radiculopathy, cervical region] Onset: 07-23-2022 Chronic Spondylosis; intervertebral disc disorders; other back problems (7 sources) Cervical radiculopathy; Translations: [Radiculopathy, cervical region] Onset: 07-23-2022 Episodic Sprains and strains (2 sources) Other sprain of left hip, initial encounter; Translations: [Other sprain of left hip, initial encounter] Onset: 08-10-2018 Episodic Past or Other Problems Problem Classification Problem Date Documented Da te Episodic/Chronic Other gastrointestinal disorders (3 sources) Incontinence of feces; Translations: [Full incontinence of feces] Onset: 03-01-2013 03-01-2013 Episodic Unclassified (1 source) Encounter for screening for malignant neoplasm of colon; Translations: [Encounter for screening for malignant neoplasm of colon] Onset: 01-18-2017 Episodic Unclassified (1 source) Problem Results Test Name Value Interpretation Reference Range Facil ity Vital Signs Date Time Vital Sign Value Performing Clinician Facility 08-02-2022 11:28-0500 Body height 154.9 cm Yovany Hicks MD Work Phone: [facility] 08-02-2022 11:28-0500 Body mass index (BMI) [Ratio] 19.46 kg/m2 Yovany Hicks MD Work Phone: [facility] 08-02-2022 11:28-0500 Body temperature 98.29 [degF] Yovany Hicks MD Work Phone: [facility] 08-02-2022 11:28-0500 Body weight 46.72 kg Yovany Hicks MD Work Phone: [facility] 08-02-2022 11:28-0500 Diastolic blood pressure 66 mm[Hg] Yovany Hicks MD Work Phone: [facility] 08-02-2022 11:28-0500 Heart rate 77 /min Yovany Hicks MD Work Phone: [facility] 08-02-2022 11:28-0500 Respiratory rate 12 /min Yovany Hicks MD Work Phone: [facility] 08-02-2022 11:28-0500 SaO2% (BldA) [Mass fraction] 99 % Yovany Hicks MD Work Phone: [facility] 08-02-2022 11:28-0500 Systolic blood pressure 142 mm[Hg] Yovany Hicks MD Work Phone: [facility] NEGATED: Highlighted [id number] 14:010500 BMI (Body Mass Index) 23.13 kg/m2 [facility] Work Phone: NEGATED: Highlighted [id number] 14:01-0500 BP Diastolic 82 mm[Hg] [facility] Michael MANAGER PRODUCT MARKETING [facility] Work Phone: NEGATED: Highlighted [id number] 14:0500 BP Systolic 134 mm[Hg] [facility] Omak MANAGER PRODUCT MARKETING [facility] Work Phone: NEGATED: Highlighted [id number] 14:050 [facility] Work Phone: NEGATED: Highlighted [id number] 14:0500 [facility] Work Phone: NEGATED: Highlighted [id number] 14:-0500 Pulse (Heart Rate) 87 /min [facility] Omak MANAGER PRODUCT MARKETING [facility] Work Phone: NEGATED: Highlighted [id number] 14:0500 Weight 57.15 kg [facility] Work Phone: NEGATED: Highlighted [id number] 14:01-[address] [facility] Work Phone: Encounters Encounter Date Encounter Type Care Provider Facility Start: 03-28-2023 End: 04-01-2023 ambulatory [facility] Start: 12-21-2022 End: 12-25-2022 ambulatory [facility] Start: 08-02-2022 ambulatory YOVANY HICKS Facility:[facility] Start: 08-02-2022 End: 08-02-2022 Office consultation new/estab patient 60 min Yovany Hicks MD Work Phone: [facility] Procedures Date Procedure Procedure Detail Performing Clinician Start: 08-02-2022 End: 08-02-2022 Radex entir thrc lmbr crv sac spi w/skull 2/3 vw Yovany Hicks MD Work Phone: Start: 07-18-2018 End: 07-18-2018 Blood pressure within normal parameters - no follow-up required Jordan Gonzalez MD Work Phone: Start: 07-18-2018 End: 07-18-2018 BMI documented within normal parameters - no follow-up plan is required Jordan Gonzalez MD Work Phone: Start: 07-18-2018 End: 07-18-2018 Documentation of current medications Jordan Gonzalez MD Work Phone: Start: 07-18-2018 End: 07-18-2018 Pain assessment documented as negative - follow-up not required Jordan Gonzalez MD Work Phone: Start: 07-18-2018 End: 07-18-2018 Tobacco non-user Jordan Gonzalez MD Work Phone: Plan of Treatment Date Care Activity Detail Author Start: 03-27-2028 Tetanus vaccination TETANUS [facility] Start: 06-17-2022 [facility] Start: 2021 Pneumococcal vaccination PNEUMOCOCCAL VACCINE SERIES (1 - PCV) [facility] Start: 12-24-2020 COVID-19 VACCINE (3 - Booster for Pfizer series) COVID-19 VACCINE (3 - Booster for Pfizer series) [facility] Start: 07-18-2018 End: 07-18-2018 Appointment [facility] Work Phone: Start: 07-18-2018 End: 07-18-2018 Mri any jt lower extrem w/contrast material Arthrogram with MRI - bilateral hip [facility] Work Phone: Start: 07-18-2018 End: 07-18-2018 Radex hips bilateral with pelvis minimum 5 views XR PELVIS W HIPS 5+ VWS BILAT [facility] Work Phone: Start: 11-24-2013 Screening for osteoporosis DEXA SCAN DISCUSSION [facility] Start: 2006 Zoster vaccine hzv live for subcutaneous use ZOSTER (SHINGLES) VACCINE (1 of 2) [facility] Start: 2001 Screening for malignant neoplasm of colon COLORECTAL CANCER SCREENING DISCUSSION [facility] Start: 1996 Lipid panel LIPID SCREENING [facility] Start: 1996 Screening for malignant neoplasm of breast MAMMOGRAM SCREENING DISCUSSION [facility] Start: 1977 Screening for malignant neoplasm of cervix CERVICAL CANCER SCREENING DISCUSSION [facility] Start: 1955 Hepatitis C screening HEPATITIS C VIRUS SCREENING [facility] Start: 1955 Potassium [Moles/volume] in Serum or Plasma POTASSIUM [facility] 24 hour urine measurement Fi [facility] Work Phone: Electrophoresis: [id number] [facility] Work Phone: Electrophoresis: [id number] [facility] Work Phone: Electrophoresis: beta-globulin [facility] Work Phone: Immunofixation for Urine [facility] Work Phone: Measurement of monoc lonal protein concentration [facility] Work Phone: Protein [Mass/volume ] in Urine [facility] Work Phone: Immunizations Immunization Date Immunization Notes Care Provider Fa cility No information available. Jolene Rodriguez LPN [facility] Work Phone: Payers Date Payer Category Payer Medicare [id number] 2022 Medicare MEDICARE [employer] HMO PPO MEDICARE [employer] HMO PPO [id number] 2022-Present [address] [address] [place] [address] [id number] 2022 Medicare [id number] 2022 Self-pay 2021 Medicare [id number] 1955 Unknown [id number] 1955 Unknown [id number] 1955 Unknown [id number] 1955 Unknown [id number] 1948 Unknown [id number] 1947 Unknown [id number] 1947 Unknown [id number] 1947 Unknown [id number] Private Health Insurance Unknown [id number] Social History Date Type Detail Facility Start: 07-18-2018 End: 07-18-2018 Assertion Unknown if ever smoked [facility] Work Phone: Start: 1955 Sex Assigned At Female F [facility] Start: 1955 Sex Assigned At Not on file [facility] Start: 07-23-2022 End: 08-02-2022 Exposure to SARS-CoV-2 (event) Not sure [facility] History of Present illness Narrative 08-02-2022 Yovany Hicks MD - 08/02/2022 11:00 AM EST Note Date & Type Note Facility 08-02-2022 History of Present illness Narrative History & Physical Name: Amanda Nunez : 1955 Age: 66 y.o. SUBJECTIVE: Chief Complaint / Reason for Visit: Arm pain HPI: This is a very pleasant 66-year-old woman with a history of osteoporosis who presents for evaluation of intractable left arm pain. She states that approximately a few weeks ago she woke up in the middle of night and had intractable pain that shot down from her neck into her arm and left ring finger and middle finger. The pain eventually resolved on its own. She states that she is been having these intermittent pains for the past year. When they occur she does stretching in manual traction on her own which helps alleviate the symptoms. She specifically denies any weakness in her hands or upper extremities and denies any changes in her balance or gait. Review of Systems: 14-point review of systems negative except for findings noted in HPI HISTORY: ALLERGIES: Nsaids MEDICATIONS: Current Outpatient Medications Medication Sig Last Dose Start Date End Date Authorizing Provider Albuterol (2.5 MG/3ML) 0.083% inhalation solution INHALE contents of 1 vial (3mL) via NEBULIZER EVERY 4 HOURS NEEDED Taking 07/09/22 Historical Provider Ascorbic acid 500 MG tablet 500 mg, Oral, DAILY Taking Historical Provider Cholecalciferol (VITAMIN D-3 PO) 5,000 mg, Oral, DAILY Taking Historical Provider Fluticasone Propionate, Inhal, (FLOVENT IN) Inhalation Taking Historical Provider Indapamide 1.25 MG tablet 1.25 mg, Oral, DAILY Taking 07/26/22 Historical Provider L-THEANINE PO Oral Taking Historical Provider Montelukast 10 MG tablet 10 mg, Oral, DAILY Taking Historical Provider Potassium Chloride CR 8 MEQ Cap CR 1 capsule, Oral, DAILY Taking 11/19/21 Historical Provider traZODone 100 MG tablet 1 tablet, Oral, DAILY AT BEDTIME Taking 12/18/21 Historical Provider CIPROFLOXACIN 250 MG PO TABS 250 mg, Oral, ONCE (OUTPT CLINIC) Patient not taking: Reported on 08/02/2022 Not Taking 03/13/13 Ketul K Rao, MBBS PAST MEDICAL HISTORY: Past Medical History: Diagnosis Date Fecal incontinence Female bladder prolapse Frequent UTI IBS (irritable bowel syndrome) Pelvic pain Rectocele PAST SURGICAL HISTORY: Past Surgical History: Procedure Laterality Date CYSTOSCOPY BLADDER SUSPENSION 2008 FAMILY HISTORY: No family history on file. SOCIAL HISTORY: has no history on file for tobacco use, alcohol use, and drug use. OBJECTIVE: Vitals: 08/02/22 1128 BP: 142/66 Pulse: 77 Resp: 12 Temp: 98.3 degrees F (36.8 degrees C) TempSrc: Infrared SpO2: 99% Weight: 46.7 kg (103 lb) Height: 1.549 m (5' 1 ) PHYSICAL EXAM: General: Patient is well appearing and in no apparent distress. AOX3 Pulm: Respirations are regular and unlabored Skin: no rashes Eyes: PERRL, EOMI. Vision is grossly intact. Musculoskeletal: No loss of muscle tone or atrophy noted. Cardio: There is no peripheral edema, cyanosis or pallor. Extremities are warm and well perfused. Patient is oriented to person, place and time. CN 2-12 are grossly intact bilaterally Speech is fluent, non-dysarthric. Neck: No lymphadeoapthy Test Coordination: Finger to nose, rapid alternating movement are grossly intact Neuro: Eyes open spontaneously Pupils: 4 mm and reactive bilaterally Oriented to person, place, and time Face symmetric Upper Extremities: deltoid bicep tricep Wrist ext Coal Getter Hand IO right 5/5 5/5 5/5 5/5 5/5 5/5 left 5/5 5/5 5/5 5/5 5/5 5/5 Lower extremities: Hip flex Quad Hamstr Cydney flex Plantar flex EHL toes right 5/5 5/5 5/5 5/5 5/5 5/5 5/5 left 5/5 5/5 5/5 5/5 5/5 5/5 5/5 Reflexes: 2+ in biceps, patella Graves's: negative bilaterally Ankle Clonus: Negative Sensation: grossly intact throughout IMAGING STUDIES: These were personally reviewed and the reads below are my own interpretations Cervical x-rays 08/02/2022: Severe advanced spondylotic changes in the cervical spine with multilevel disc degeneration and mild upper cervical kyphosis. MRI cervical spine 07/17/2022: No significant central canal stenosis. Multilevel severe spondylosis with moderate central canal stenosis from C3-C7. No evidence of cord compression or cord signal change. ASSESSMENT & PLAN: Principal Problem: Osteoporosis Cervical radiculopathy Plan: Amanda Nunez presents with signs and symptoms of cervical radiculopathy in the backdrop of severe osteoporosis. Overall her symptoms are well controlled with conservative measures. She has no evidence of myelopathy and no imaging evidence of severe spinal stenosis. Overall especially given her history of severe osteoporosis, my recommendation is to avoid surgical intervention at all costs. She is amenable to this plan. We will have her continue to work with outpatient physical therapy. I went over red flag symptoms for progressive myelopathy which include balance and gait changes as well as upper extremity weakness. Should any of these symptoms occur, she assures us that she will be in contact. I am happy to see her again for any future changes or developments. Yovany Hicks MD Insurance Underwriter Sales Department of Neurosurgery [facility] documented in this encounter [facility] Instructions 08-02-2022 Patient Instructions Note Date & Type Note Facility 08-02-2022 Instructions Elida Baker RN - 08/02/2022 11:00 AM EST Please call your preferred Physical Therapist to establish appointments. documented in this encounter [facility] Evaluation note Note Date & Type Note Facility Evaluation note [facility]: Evaluation note Note Date & Type Note Facility documented in this encounter [facility] Evaluation note Note Date & Type Note Facility documented in this encounter [facility] Summary Purpose Family History No Family History Records FoundNo Family History Records FoundThere may be information available, but it has not been provided by the sender.No Family History Records FoundNo Family History Records FoundNo Family History Records FoundNo Family History Records FoundNo Family History Records FoundNo Family History Records FoundNo Family History Records FoundNo Family History Records Found Advance Directives No Advanced Directives Records FoundNo Advanced Directives Records FoundThere may be information available, but it has not been provided by the sender.No Advanced Directives Records FoundNo Advanced Directives Records FoundNo Advanced Directives Records FoundNo Advanced Directives Records FoundNo Advanced Directives Records FoundNo Advanced Directives Records FoundNo Advanced Directives Records FoundNo Advanced Directives Records Found Chief Complaint Chief Complaint Description Start Date bilateral hip pain Preliminary chief co mplaint data, not yet signed by the author as of Instructions Instruction Description Start Date Completed Assessments There may be information available, but it has not been provided by the sender. Review of System There may be information available, but it has not been provided by the sender. History of Present Illness There may be information available, but it has not been provided by the sender. Reason for Referral Specialty Diagnoses / Procedures Referred By Amirah foley Referred To Contact Physical Therapy Diagnoses Spinal stenosis, cervical region Other spondylosis with radiculopathy, cervical region Other cervical disc degeneration, unspecified cervical region Yovany Hicks MD [address] [place] [address] Physical Therapy [place] [address] [address] Referral ID Status Reason Start Date Expiration Date V isits Requested Visits Authorized [id number] New Request 08/02/2022 08/27/2023 1 1 Scheduling Instructions [facility] [address] [facility] [place] [address] Fax [facility]) [address] [place], [place] [address] FAX [facility] [address] [place], [place] [id number] FAX [facility] [address] [place] [address] FAX [facility] [place] [id number] [place] [address] FAX Physical Therapy at [address] [address] FAX [facility] [address] [place], [place] [address] FAX Continued on next page [facility] [address] [place] [address] FAX [facility] [address] [place] [address] FAX Additional Source Comments INFORMATION SOURCE (unrecogn ized section and content) DATE CREATED AUTHOR AUTHOR'S ORGANIZ ATION 06/11/2018 [facility] DATE CREATED AUTHOR AUTHOR'S ORGANIZ ATION 08/21/2018 [facility] DATE CREATED AUTHOR AUTHOR'S ORGANIZ ATION 02/21/2019 [facility] DATE CREATED AUTHOR AUTHOR'S ORGANIZ ATION 08/13/2020 [facility] DATE CREATED AUTHOR AUTHOR'S ORGANIZ ATION 08/15/2020 [facility] DATE CREATED AUTHOR AUTHOR'S ORGANIZ ATION 06/05/2021 [facility] DATE CREATED AUTHOR AUTHOR'S ORGANIZ ATION 08/05/2022 [facility] DATE CREATED AUTHOR AUTHOR'S ORGANIZ ATION 09/10/2022 [facility] DATE CREATED AUTHOR AUTHOR'S ORGANIZ ATION 04/05/2023 [facility] Reason for Visit (unrecogniz ed section and content) Reason Comments New Patient Specialty Diagnoses / Procedures Referred By Amirah t Referred To Contact Orthopaedic Surgery Diagnoses Spinal stenosis, cervical region Other spondylosis with radiculopathy, cervical region Other cervical disc degeneration, unspecified cervical region Lachelle Darby DO [address] [facility] [address] [place] [address] Deb Tao MD, PhD [address] [place] [address] Referral ID Status Reason Start Date Expiration Date V isits Requested Visits Authorized [id number] Pending Review 07/23/2022 08/17/2023 1 1 Care Teams (unrecognized sec tion and content) Typewriter Mechanic Relationship Specialty Start Date End Date Aleksey Mckinney MD [address] [facility] [address] [place] [address] PCP - General Family Medicine 08/02/22 Matias Rao MBBS Urology 03/01/13 Kike Rangel MD [address] [place] [address] [address] [place] [address] Urologist Urology 01/25/13 Typewriter Mechanic Relationship Specialty Start Date End Date Aleksey Mckinney MD [address] [place], [place] [id number] PCP - General Family Medicine 08/02/22 Matias Rao MBBS Urology 03/01/13 Kike Rangel MD [address] [place] [address] [address] [place] [address] Urologist Urology 01/25/13 Goals (unrecognized section and content) Goals may be documented in a n alternate section FOR RECORDS PERTAINING TO PATIENTS WHO ARE OR HAVE BEEN ENROLLED IN A CHEMICAL DEPENDENCY/SUBSTANCEABUSE PROGRAM, SOME INFORMATION MAY BE OMITTED. This clinical summary was aggregated from multiple sources. Caution should be exercised in using it in the provision of clinical care. This summary normalizes information from multiple sources, and as a consequence, information in this document may materially change the coding, format and clinical context of patient data. In addition, data may be omitted in some cases. CLINICAL DECISIONS SHOULD BE BASED ON THE PRIMARY CLINICAL RECORDS. [facility] [facility]. provides no warranty or guarantee of the accuracy or completeness of information in this document.
--- NOTE | 2023-08-30 11:45 | NEURO ---
NCS and/or EMG Patient Report Ordering Doctor: Teddy Ellsworth DATE OF SERVICE: 08/30/23 Clinical Summary: This is a 67 year old female patient presenting with complaints of numbness, tingling, and pain in the right hand/wrist. This EMG/NCS was performed to evaluate for right carpal tunnel syndrome. Nerve Conduction Studies Summary: The right median-D2 SNAP distal latency was prolonged. The right median-APB CMAP distal latency was prolonged. Needle Examination Summary: Needle examination demonstrated a higher proportion of motor unit action potentials with reduced recruitment, increased amplitude, increased duration, and polyphasia in the right abductor pollicis brevis muscle. Impression: There is electrodiagnostic evidence of the following - 1) Severe, right median mononeuropathy at the wrist (carpal tunnel syndrome), with secondary motor fiber axonal loss Multi Select Codes Neurology Neurology Interp Codes: 55369-43 Musc test done w/n test comp (interp) (1) and 27254-27 Nrv cndj tst 5-6 studies (interp)
[2023-08-30 12:11] LABS: Absolute Lymphocyte Count 1.56 X10^3/uL (0.83-4.51); Absolute Neutrophil Count 2.1 X10^3/uL (2.0-7.7); Basophil# 0.02 X10^3/uL; Basophil% 0.5 % (0-1); Eosinophil# 0.04 X10^3/uL; Hemoglobin 13.4 g/dL (12.0-15.0); Lymphocyte # 1.56 X10^3/ul (0.83-4.51); Lymphocyte % 37.3 % (19-41); Mean Corp Hgb Conc 32.7 g/dL (32-36); Mean Corpuscular Hgb 28.2 pg (27.0-32.0); Mean Corpuscular Volume 86.1 fL (81-99); Mean Platelet Vol. 9.1 fl (6.2-12.0); Monocyte% 9.6 % (0-10); NRBC Flagged by Analyzer 0 % (0-5); Neutrophil # 2.14 X10^3/uL (2.7-7.7); Neutrophil % 51.1 % (47-70); Platelet Count 248 K/mm3 (150-450); RBC Distribution Width CV 13.1 % (11.6-14.6); RBC Distribution Width SD 40.9 fl (35.1-43.9); Red Blood Count 4.76 M/mm3 (4.2-5.4); White Blood Count 4.2 K/mm3 (4.4-11.0)
[2023-08-30 13:26] LABS: Anion Gap 6 (5-15); BUN 18 mg/dL (7-18); BUN/Creat Ratio 31.4 RATIO (10-20); Calcium,Total 9.6 mg/dL (8.5-10.1); Chloride 106 mmol/L (98-107); Creatinine, Serum 0.57 mg/dL (0.55-1.02); EST Glomerular Filtration Rate 112 mL/min (>60); Est Glom Filt Rate - Afr Amer 135 mL/min (>60); Glucose 110 mg/dL (74-106); Potassium 3.2 mmol/L (3.5-5.1); Sodium Level 139 mmol/L (136-145)
== END | disposition home or self-care (01) ==
PROVIDERS: PCP Family Medicine; Referring Provider Orthopaedic Surgery; Visit Provider Orthopaedic Surgery
DX: Z01.818 Encounter for other preprocedural examination (principal); M16.11 Unilateral primary osteoarthritis, right hip; M65.341 Trigger finger, right ring finger; R20.2 Paresthesia of skin; J45.909 Unspecified asthma, uncomplicated; Z79.899 Other long term (current) drug therapy; Z01.810 Encounter for preprocedural cardiovascular examination; Z01.811 Encounter for preprocedural respiratory examination
CPT/HCPCS: 36415; 80048; 85025; 93005; 95886; 95909

== ENCOUNTER → 2023-09-02 | Outpatient (CLI) | payer MEDICARE, SELFPAY ==
--- NOTE | 2023-09-02 11:43 | RAD_ITS ---
INDICATION: PRE OP EXAMINATION/TECHNIQUE: X-RAY - XR Chest 2 Views COMPARISON: FINDINGS: LINES/DEVICES: None. LUNGS: No consolidation, edema or effusion. Right pulmonary granulomas. No pneumothorax. MEDIASTINUM AND CARDIOVASCULAR STRUCTURES: Cardiac silhouette not enlarged. Central airways and mediastinal contour are unremarkable. BONES AND SOFT TISSUES: Unremarkable. RAD/Chest PA and Lateral IMPRESSION: No radiographic evidence of acute cardiopulmonary disease. Electronically Signed: Pierre Castro DO at 18:23 EST ,
--- OUTSIDE RECORDS SUMMARY | 2023-09-02 11:47 | XMS RPT_ITS | CCD ---
Author Name Unknown Address [address] [place] [address] Organization [employer] Care Team Providers Care Field Marketing Director Name Role Phone ERIKA, LEIDY T Unavailable Unavailable ERIKA, LEIDY T Unavailable Unavailable ERIKA, LEIDY T Unavailable Unavailable ERIKA, LEIDY T Unavailable Unavailable EMILY NICHOLSON (SCOTT) Unavailable Unavailable ERIKA, LEIDY T Unavailable Unavailable KAT ONEILL Unavailable Unavailable KAT ONEILL Unavailable Unavailable Jordan Gonzalez MD Unavailable JORDAN GONZALEZ Attending Unavailab le PROVIDER, UNKNOWN Referring Unavailable Aleksey Mckinney Primary Care Unavailable JORDAN GONZALEZ Attending Unavailab conchis PROVIDER, UNKNOWN Referring Unavailable Aleksey Mckinney Primary Care Unavailable MD Edward Castillo Attending Provider Matias Riggins Unavailable Kike Rangel MD Unavailable Aleksey Mckinney MD Primary Care Provider YOVANY HICKS Attending Unavailable YOVANY HICKS Referring Unavailable ALEKSEY MCKINNEY Primary Care Unavailable ALEKSEY MCKINNEY Primary Care Unavailable YOVANY HICKS Attending Unavailable LACHELLE DARBY Referring Unavailable ALEKSEY MCKINNEY Primary Care Unavailable YOVANY HICKS Attending Unavailable YOVANY HICKS Referring Unavailable Edward Castillo Attending Unavailable Edward Castillo Admitting Unavailable NO FAMILY, PHYSICIAN Primary Care Unavailable ALEKSEY MCKINNEY Referring Unavailable ALEKSEY MCKINNEY Primary Care Unavailable ALEKSEY MCKINNEY Primary Care Unavailable KELLY MCDANIEL Admitting Unavailable Aleksey Mckinney MD Primary Care Provider 1( [phone] Allergies Allergy Classification Reported Allergen(s) Allergy Type Date of Onset Reaction(s) Facility (1 source) JUSMY-[id number]-R TARCH; Translations: [SUGAR-PROTEIN- STARCH] Propensity to adverse reactions to drug (disorder) 9 [facility] Repository (1 source) Aspirin Drug Allergy 5 [facility] Work Phone: (4 sources) Ibuprofen Drug Allergy 3 Confusion, Aggressive Behavior [facility] Work Phone: (1 source) Mold Extract; Translations: [MOLD] Drug Allergy 8 [facility] Work Phone: (1 source) Seasonal allergy; Translations: [SEASONAL] allergy to substance 5 [facility] Work Phone: (1 source) NIGHTSHADES drug allergy 8 don't metabolize carbs well [facility] Work Phone: (1 source) PLANT POLLEN drug allergy 8 hay fever [facility] Work Phone: Medications Current Medications Medication Drug [...] DOSE 81 MG TBEC 1 tablet daily [address] [id number] Nasra Yang [facility] Problems Active Problems Problem Classification Problem Date [...] D deficiency, unspecified] Onset: 12-21-2022 Chronic Osteoarthritis (3 sources) Unilateral primary osteoarthritis, left hip; Translations: [Osteoarthritis of right hip joint] Onset: 08-10-2018 09-01-2023 Chronic Osteoporosis (2 sources) Age-related osteoporosis without [...] 154.9 cm Yovany Hicks MD Work Phone: [facility] 08-02-2022 11:28-0500 Body mass index (BMI) [Ratio] 19.46 kg/m2 Yovany Hicks MD Work Phone: [facility] 08-02-2022 11:28-0500 Body temperature 98.29 [degF] Yovany Hicks MD Work Phone: [facility] 08-02-2022 11:28-0500 Body weight 46.72 kg Yovany Hicks MD Work Phone: [facility] 08-02-2022 11:28-0500 Diastolic blood pressure 66 mm[Hg] Yovany Hicks MD Work Phone: [facility] 08-02-2022 11:28-0500 Heart rate 77 /min Yovany Hicks MD Work Phone: [facility] 08-02-2022 11:28-0500 Respiratory rate 12 /min Yovany Hicks MD Work Phone: [facility] 08-02-2022 11:28-0500 SaO2% (BldA) [Mass fraction] 99 % Yovany Hicks MD Work Phone: [facility] 08-02-2022 11:28-0500 Systolic blood pressure 142 mm[Hg] Yovany Hicks MD Work Phone: [facility] NEGATED: Highlighted [id number] 14:01-0500 BMI (Body Mass Index) 23.13 kg/m2 [facility] [place] [facility] Work Phone: NEGATED: Highlighted [id number] 14:01-0500 BP Diastolic 82 mm[Hg] [facility] Work Phone: NEGATED: Highlighted [id number] 14:010500 BP Systolic 134 mm[Hg] [facility] Work Phone: NEGATED: Highlighted [id number] 14:01-0500 Height 157.48 cm [facility] [place] [facility] Work Phone: NEGATED: Highlighted [id number] 14:01-0500 Height 157 cm [facility] [place] [facility] Work Phone: NEGATED: Highlighted [id number] 14:01-0500 Pulse (Heart Rate) 87 /min [facility] [place] [facility] Work Phone: NEGATED: Highlighted [id number] 14:01-0500 Weight 57.15 kg [facility] [place] [facility] Work Phone: NEGATED: Highlighted [id number] 14:01-0500 Weight 57 kg [facility] Work Phone: Encounters Encounter Date Encounter Type Care Provider Facility Start: 09-01-2023 Transcribe Orders Jacqueline Talamantes PA-C [facility] Procedures Date Procedure Procedure Detail Performing Clinician [...] Activity Detail Author Start: 03-27-2028 Tetanus vaccination [facility] Start: 09-12-2023 End: 09-12-2023 ambulatory 09/12/2023 1:00 PM EDT [facility] [address] [place] [address] System, Provider Not In Phyllis Espinal, PT Discharge Disposition: Home [facility] Start: 03-04-2023 COVID-19 Vaccine ( season) COVID-19 Vaccine ( season) [facility] Start: 03-04-2023 Influenza vaccination Sequential Influenza Vaccine (#1) [facility] Start: 06-17-2022 [facility] Start: 2021 Fall risk assessment Falls Risk Assessment [facility] Start: 2021 Pneumococcal vaccination PNEUMOCOCCAL VACCINE SERIES (1 - PCV) [facility] Start: 2021 Pneumococcal Vaccine: Age 65+ (1 of 1 - PCV) Pneumococcal Vaccine: Age 65+ (1 of 1 - PCV) [facility] Start: 12-24-2020 COVID-19 VACCINE (3 - Booster for Pfizer series) COVID-19 VACCINE (3 - Booster for Pfizer series) [facility] Start: 07-18-2018 End: 07-18-2018 Appointment [facility] Work Phone: Start: 07-18-2018 End: 07-18-2018 Mri any jt lower extrem w/contrast material Arthrogram with MRI - bilateral hip [facility] Work Phone: Start: 07-18-2018 End: 07-18-2018 Radex hips bilateral with pelvis minimum 5 views XR PELVIS W HIPS 5+ VWS BILAT [facility] Work Phone: Start: 11-24-2013 Screening for osteoporosis DEXA SCAN DISCUSSION [facility] Start: 2006 Administration of herpes zoster vaccine Zoster Vaccines (1 of 2) [facility] Start: 2006 Zoster vaccine hzv live for subcutaneous use ZOSTER (SHINGLES) VACCINE (1 of 2) [facility] Start: 2001 Screening for malignant neoplasm of colon COLORECTAL CANCER SCREENING DISCUSSION [facility] Start: 1996 Lipid panel LIPID SCREENING [facility] Start: 1996 Screening for malignant neoplasm of breast MAMMOGRAM SCREENING DISCUSSION [facility] Start: 1977 Screening for malignant neoplasm of cervix CERVICAL CANCER SCREENING DISCUSSION [facility] Start: 1974 Hepatitis C screening Hepatitis C Screening [facility] Start: 1968 Depression screening using PHQ-9 (Patient Health Questionnaire 9) score Depression Screening (PHQ-2/9) [facility] Start: 12-08-1959 History and physical examination, annual for health maintenance Wellness Visit [facility] Start: 1956 Hepatitis C screening HEPATITIS C VIRUS SCREENING [facility] Start: 1956 Potassium [Moles/volume] in Serum or Plasma POTASSIUM [facility] Start: 1956 Screening for malignant neoplasm of colon [facility] Start: 1956 Screening for osteoporosis Dexa Scan [facility] 24 hour urine measurement [facility] Work Phone: Electrophoresis: [id number] [facility] Work Phone: Electrophoresis: [id number] [facility] Work Phone: Electrophoresis: beta-globulin [facility] Work Phone: Immunofixation for Urine Fir [facility] Work Phone: Measurement of monoc lonal protein concentration [facility] Work Phone: Protein [Mass/volume ] in Urine [facility] Work Phone: Immunizations Immunization Date Immunization Notes Care Provider Fa renae No information available. Jolene Rodriguez LPN [facility] Work Phone: Payers Date Payer Category Payer Medicare [id number] 2022 Medicare [id number] 2022 Self-pay 2021 Medicare [id number] 2021 Medicare [id number] 1955 Unknown [id number] [id number] 1955 Unknown [id number] 2.16.8 [id number] 1955 Unknown [id number] 2.16. [id number] 1955 Unknown [id number] 2.16. [id number] 1948 Unknown [id number] 2.16. [id number] 1948 Unknown [id number] 2.16. [id number] 1948 Unknown [id number] 2.16. [id number] 1947 Unknown [id number] 2.16. [id number] Private Health Insurance Unknown [id number] 2.16.8 [id number] Social History Date Type Detail Facility Start: 07-18-2018 End: 07-18-2018 Assertion Unknown if ever smoked [facility] Work Phone: Start: 1955 Sex Assigned At Female F [facility] Start: 1955 Sex Assigned At Not on file O [facility] Start: 07-23-2022 End: 08-02-2022 Exposure to SARS-CoV-2 (event) Not sure [facility] Start: 12-24-2014 History of Social function [facility] Start: 12-24-2014 Tobacco use panel [facility] History of Present illness Narrative 08-02-2022 Yovany Hicks MD - 08/02/2022 11:00 AM EST Note Date & Type Note Facility 08-02-2022 History of Present illness Narrative History & Physical Name: Amanda Faye : 1955 Age: 66 y.o. SUBJECTIVE: Chief [...] taking: Reported on 08/02/2022 Not Taking 03/13/13 VALERY Zapata PAST MEDICAL HISTORY: Past Medical History: Diagnosis [...] Upper Extremities: deltoid bicep tricep Wrist ext Technical Support Agent Hand IO right 5/5 5/5 5/5 5/5 [...] Principal Problem: Osteoporosis Cervical radiculopathy Plan: Amanda Faye presents with signs and symptoms of cervical [...] future changes or developments. Yovany Hicks MD Auto Body Shop Manager Department of Neurosurgery [facility] documented in this encounter [facility] Instructions 01-30-2023 Patient Instructions Note Date & Type Note Facility 08-02-2022 Instructions Eilda Baker RN - 08/02/2022 11:00 AM EST Please call your preferred Physical Therapist to establish appointments. documented in this encounter [facility] Evaluation note Note Date & Type Note Facility Evaluation note No assessment information availa [facility] [place] Work Phone: Evaluation note Note Date & Type Note Facility documented in this encounter [facility] Evaluation note Note Date & Type Note Facility documented in this encounter [facility] Evaluation note Note Date & Type Note Facility documented in this encounter [facility] Summary Purpose Family History No Family History [...] Referred By Amirah t Referred To Contact Physical Therapy Diagnoses Spinal stenosis, cervical region Other spondylosis with radiculopathy, cervical region Other cervical disc degeneration, unspecified cervical region Yovany Hicks MD [address] [place] [address] Physical Therapy [place] [address] [place] [address] Referral ID Status Reason Start Date Expiration Date V isits Requested Visits Authorized [id number] New Request 08/02/2022 08/27/2023 1 1 Scheduling Instructions [facility] [address] [facility], 2nd Floor [place] [address] Fax [facility] (Neck and Back Therapy) [address] [place], [place] [address] FAX [facility] [address] [place] [address] FAX Outpatient Rehabilitation Outpatient Care [place] [address] [facility] [address] [place] [address] FAX [facility] [address] [place] [address] FAX [facility] [address] [place], [place] [address] FAX [facility] [address] [place], [place] [address] FAX Continued on next page Outpatient Rehabilitation Outpatient Care [address] [place] [address] FAX [facility] [address] [facility] [place] [address] FAX Specialty Diagnoses / Procedures Referred By Amirah foley Referred To Contact Rehabilitation Diagnoses Osteoarthritis of right hip, unspecified osteoarthritis type Jacqueline Tobin PA-C [address] [facility] [address] [place] [address] [facility] [place] [address] [place] [address] Referral ID Status Reason Start Date Expiration Date V isits Requested Visits Authorized [id number] Authorized 09/01/2023 08/31/2024 1 1 Additional Source Comments INFORMATION SOURCE (unrecogn ized section and content) DATE CREATED AUTHOR AUTHOR[facility]S [facility]IZ AT[facility] DATE CREATED AUTHOR AUTHOR'S ORGANIZ ATION 08/21/[address] [facility] DATE CREATED AUTHOR AUTHOR'S ORGANIZ ATION 02/21/[address] [facility] DATE CREATED AUTHOR AUTHOR'S ORGANIZ ATION 08/13/2020 [employer] DATE CREATED AUTHOR AUTHOR'S ORGANIZ ATION 08/15/[address] [facility] DATE CREATED AUTHOR AUTHOR'S ORGANIZ ATION 06/05/2021 [facility] DATE CREATED AUTHOR AUTHOR'S ORGANIZ ATION 08/05/2022 [facility] DATE CREATED AUTHOR AUTHOR'S ORGANIZ ATION 09/10/2022 [facility] DATE CREATED AUTHOR AUTHOR'S ORGANIZ ATION 04/05/2023 [facility] Reason for Visit (unrecogniz ed section and content) Reason Comments New Patient Specialty Diagnoses / Procedures Referred By Contac t Referred To Contact Orthopaedic Surgery Diagnoses Spinal stenosis, cervical region Other spondylosis with radiculopathy, cervical region Other cervical disc degeneration, unspecified cervical region Lachelle Darby DO [address] [address] Deb Tao MD, PhD [address] [place] [phone] Referral ID Status Reason Start Date Expiration Date V isits Requested Visits Authorized [id number] Pending Review 07/23/2022 08/17/2023 1 1 Care Teams (unrecognized sec tion and content) Field Marketing Director Relationship Specialty Start Date End Date Aleksey Mckinney MD [address] [facility] [address] [place], [place] [address] PCP - General Family Medicine 08/02/22 Matias Rao MBBS Urology 03/01/13 Kike Rangel MD [address] [place] [address] [address] [place] [address] Urologist Urology 01/25/13 Field Marketing Director Relationship Specialty Start Date End Date Aleksey Mckinney MD [address] [facility] [address] [place], [place] [phone] PCP - General Family Medicine 08/02/22 Matias Rao MBBS Urology 03/01/13 Kike Rangel MD [address] [place] [address] [address] [place] [address] Urologist Urology 01/25/13 Field Marketing Director Relationship Specialty Start Date End Date Aleksey Mckinney MD [address] [facility] [address] [place], [place] [phone] PCP - General Family Medicine 12/21/22 Goals (unrecognized section and content) Goals may [...] BE BASED ON THE PRIMARY CLINICAL RECORDS. [employer] [facility]. provides no warranty or guarantee of the accuracy or completeness of information in this document.
[2023-09-02 12:21] LABS: Absolute Lymphocyte Count 1.44 X10^3/uL (0.83-4.51); Basophil# 0.02 X10^3/uL; Basophil% 0.5 % (0-1); Eosinophil# 0.06 X10^3/uL; Eosinophils% 1.5 % (0-5); Hematocrit 41.4 % (37-47); Hemoglobin 13.3 g/dL (12.0-15.0); Lymphocyte # 1.44 X10^3/ul (0.83-4.51); Lymphocyte % 36.8 % (19-41); Mean Corp Hgb Conc 32.1 g/dL (32-36); Mean Corpuscular Hgb 27.9 pg (27.0-32.0); Mean Corpuscular Volume 86.8 fL (81-99); Mean Platelet Vol. 9.1 fl (6.2-12.0); Monocyte# 0.36 X10^3/uL; Monocyte% 9.2 % (0-10); NRBC Flagged by Analyzer 0 % (0-5); Neutrophil # 2.02 X10^3/uL (2.7-7.7); Neutrophil % 51.7 % (47-70); Platelet Count 258 K/mm3 (150-450); RBC Distribution Width CV 13.1 % (11.6-14.6); RBC Distribution Width SD 41.1 fl (35.1-43.9); Red Blood Count 4.77 M/mm3 (4.2-5.4); White Blood Count 3.9 K/mm3 (4.4-11.0)
[2023-09-02 12:48] LABS: Anion Gap 3 (5-15); BUN 17 mg/dL (7-18); BUN/Creat Ratio 29.5 RATIO (10-20); Calcium,Total 9.4 mg/dL (8.5-10.1); Chloride 105 mmol/L (98-107); Creatinine, Serum 0.58 mg/dL (0.55-1.02); EST Glomerular Filtration Rate 111 mL/min (>60); Est Glom Filt Rate - Afr Amer 135 mL/min (>60); Glucose 110 mg/dL (74-106); Potassium 3.5 mmol/L (3.5-5.1); Sodium Level 139 mmol/L (136-145)
== END | disposition home or self-care (01) ==
PROVIDERS: PCP Family Medicine; Referring Provider Orthopaedic Surgery; Visit Provider Orthopaedic Surgery
DX: Z01.818 Encounter for other preprocedural examination (principal); Z01.811 Encounter for preprocedural respiratory examination; Z01.810 Encounter for preprocedural cardiovascular examination; M16.11 Unilateral primary osteoarthritis, right hip; J45.909 Unspecified asthma, uncomplicated
CPT/HCPCS: 36415; 71046; 80048; 85025

== ENCOUNTER → 2023-09-12 | Outpatient (CLI) | payer MEDICARE, SELFPAY ==
--- NOTE | 2023-09-12 | HIP_PTH ---
PATHOLOGY RESULTS PATIENT: GENE NUNEZ LOC: [facility] U#:[id number] AGE/SX: 67/F ROOM: RE09/12/[address]: Dr. Teddy Ellsworth MD : 1955 BED: DIS: 09/12/2023 SPEC #: [id number] RECD: 09/13/23 08:09 STATUS: MANNIE BOYDYandy #: [id number] CT: 09/12/23 00:[address]: Teddy Ellsworth DEPT: SURGICAL PATHOLOGY RECD BY: Carlee Bobby ENTERED: 09/13/23 08:10 SP TYPE: TOTAL HIP OTHR DR: Dr. Aleksey Alonso MD [facility] Tissues: Hip, NOS Procedures: Decalcification bone/plaque Surgery Specimen Level IV HEADER OPERATION: Right total hip replacement PRE-OP DIAGNOSIS: Unilateral primary osteoarthritis, right hip TISSUE SUBMITTED: Right femoral head, bone and pathology soft tissue MICROSCOPIC DIAGNOSIS Bone and tissue of right hip, total hip resection: Severe degenerative joint disease. Mild synovial hyperplasia. AM: 09/16/2023 MICROSCOPIC DESCRIPTION Slides are reviewed. GROSS DESCRIPTION Received is one container labeled with the patient's name and designated bone and soft tissue right hip. The specimen consists of a mo femoral head with portion of femoral neck. The femoral head measures 4.0 x 5.0 x 4.5 cm and the femoral neck measures up to 2.0 cm in length. The articular surface displays prominent osteophyte formation, eburnation and bone erosion. Also present on the top of the femoral head is a small piece of soft tissue measuring 2.0 x 2.0 x 0.5 cm. Also present in the specimen container are multiple irregular fragments of bone reamings measuring in aggregate 4.5 x 3.5 x 1.2 cm. Etiologist sections are submitted in two cassettes as follows: 1 - soft tissue, 2 - bone after decalcification. / CHRISTEN:kurt 09/13/2023 TC:5 CPT: 38292, [address]
--- OUTSIDE RECORDS SUMMARY | 2023-09-12 20:40 | XMS RPT_ITS | CCD ---
Author Name Unknown Address [address] [place] [address] Organization [facility] Care Team Providers Care Bookmobile Driver Name Role Phone ERIKA, LEIDY T Unavailable [...] Primary Care Provider YOVANY HICKS Attending Unavailable YVOANY HICKS Referring Unavailable ALEKSEY MCKINNEY Primary Care [...] Unavailable Aleksey Mckinney MD Primary Care Provider Allergies Allergy Classification Reported Allergen(s) Allergy Type Date of Onset Reaction(s) Facility (1 source) IODOO-VQUXJIF-P TARCH; Translations: [SUGAR-PROTEIN- STARCH] Propensity to adverse reactions to drug (disorder) 9 [facility] [place] [facility] (1 source) Aspirin Drug Allergy 5 [facility] Work Phone: (4 sources) Ibuprofen Drug Allergy 3 Confusion, Aggressive Behavior [facility] Work Phone: (1 source) Mold Extract; Translations: [MOLD] Drug Allergy 8 [facility] Work Phone: (1 source) Seasonal allergy; Translations: [SEASONAL] allergy to substance 5 [facility] Work Phone: (1 source) NIGHTSHADES drug allergy 8 don't metabolize carbs well [facility] Work Phone: (1 source) PLANT POLLEN drug allergy 8 hay fever [facility] Work Phone: Medications Current Medications Medication Drug [...] DOSE 81 MG TBEC 1 tablet daily [address] [phone] Nasra Yang [facility] Problems Active Problems Problem Classification Problem Date [...] D deficiency, unspecified] Onset: 12-21-2022 Chronic Osteoarthritis (6 sources) Unilateral primary osteoarthritis, left hip; Translations: [...] 154.9 cm Yovany Hicks MD Work Phone: [facility] 08-02-2022 11:28-0500 Body mass index (BMI) [Ratio] 19.46 kg/m2 Yovany Hicks MD Work Phone: [facility] 08-02-2022 11:28-0500 Body temperature 98.29 [degF] Yovany Hicks MD Work Phone: [facility] 08-02-2022 11:28-0500 Body weight 46.72 kg Yovany Hicks MD Work Phone: [facility] 08-02-2022 11:28-0500 Diastolic blood pressure 66 mm[Hg] Yovany Hicks MD Work Phone: [facility] 08-02-2022 11:28-0500 Heart rate 77 /min Yovany Hicks MD Work Phone: [facility] 08-02-2022 11:28-0500 Respiratory rate 12 /min Yovany Hicks MD Work Phone: [facility] 08-02-2022 11:28-0500 SaO2% (BldA) [Mass fraction] 99 % Yovany Hicks MD Work Phone: [facility] 08-02-2022 11:28-0500 Systolic blood pressure 142 mm[Hg] Yovany Hicks MD Work Phone: [facility] NEGATED: Highlighted [id number] 14:010500 BMI (Body Mass Index) 23.13 kg/m2 [facility] Work Phone: NEGATED: Highlighted [id number] 14:01-0500 BP Diastolic 82 mm[Hg] [facility] Work Phone: NEGATED: Highlighted [id number] 14:010500 BP Systolic 134 mm[Hg] [facility] Work Phone: NEGATED: Highlighted [id number] 14:01-[address] [facility] Work Phone: NEGATED: Highlighted [id number] 14:01-[address] [facility] Work Phone: NEGATED: Highlighted [id number] 14:01-0500 Pulse (Heart Rate) 87 /min [facility] Work Phone: NEGATED: Highlighted [id number] 14:01-[address] [facility] Work Phone: NEGATED: Highlighted [id number] 14:01-[address] [facility] Work Phone: Encounters Encounter Date Encounter Type Care Provider Facility Start: 09-12-2023 End: 09-12-2023 ambulatory Provider Not In System [facility] Procedures Date Procedure Procedure Detail Performing Clinician Start: 08-02-2022 End: 01-30-2023 Radex entir thrc lmbr crv sac spi [...] Activity Detail Author Start: 03-27-2028 Tetanus vaccination [facility] Start: 10-10-2023 End: 10-10-2023 ambulatory 10/10/2023 10:00 AM EDT Treatment [facility] [address] [place] [address] System, Provider Not In Phyllis Espinal PT [facility] Start: 10-07-2023 End: 10-07-2023 ambulatory 10/07/2023 10:00 AM EDT Treatment [facility] [address] [place] [address] System, Provider Not In Phyllis Espinal PT [facility] Start: 10-03-2023 End: 10-03-2023 ambulatory 10/03/2023 10:00 AM EDT Treatment [facility] [address] [place] [address] System, Provider Not In Elizabeth Gonzales PTA [facility] Start: 09-30-2023 End: 09-30-2023 ambulatory 09/30/2023 10:00 AM EDT Treatment [facility] [address] [place] [address] System, Provider Not In Phyllis Espinal, KAYLENE [facility] Start: 09-26-2023 End: 09-26-2023 ambulatory 09/26/2023 10:00 AM EDT Treatment [facility] [address] [place] [address] System, Provider Not In Elizabeth Gonzales, FISHER D[employer] [facility] Start: 09-23-2023 End: 09-23-2023 ambulatory 09/23/2023 10:00 AM EDT Treatment [facility] [address] [place] [address] System, Provider Not In Elizabeth Gonzales, PARKER [facility] Start: 09-19-2023 End: 09-19-2023 ambulatory 09/19/2023 10:00 AM EDT Treatment [facility] [address] [place] [id number] System, Provider Not In Phyllis Espinal, PT [facility] Start: 09-16-2023 End: 09-16-2023 ambulatory 09/16/2023 10:00 AM EDT Treatment [facility] [address] [place] [phone] System, Provider Not In Elizabeth Gonzales, [employer] Discharge Disposition: Home [facility] Start: 09-12-2023 End: 09-12-2023 ambulatory 09/12/2023 1:00 PM EDT Evaluation [facility] [address] [place] [phone] System, Provider Not In Phyllis Espinal, PT Discharge Disposition: Home [facility] Start: 03-04-2023 COVID-19 Vaccine () COVID-19 Vaccine () [facility] Start: 03-04-2023 Influenza vaccination Sequential Influenza Vaccine (#1) [facility] Start: 06-17-2022 [facility] Start: 2021 Fall risk assessment Falls Risk Assessment [facility] Start: 2021 Pneumococcal vaccination PNEUMOCOCCAL VACCINE SERIES (1 - PCV) [facility] Start: 2021 Pneumococcal Vaccine: Age 65+ (1 of 1 - PCV) Pneumococcal Vaccine: Age 65+ (1 of 1 - PCV) [facility] Start: 12-24-2020 COVID-19 VACCINE (3 - Booster for Pfizer series) COVID-19 VACCINE (3 - Booster for Pfizer series) [facility] Start: 07-18-2018 End: 07-18-2018 Appointment [facility] Work Phone: Start: 07-18-2018 End: 07-18-2018 Mri any jt lower extrem w/contrast material Arthrogram with MRI - bilateral hip [facility] Work Phone: Start: 07-18-2018 End: 07-18-2018 Radex hips bilateral with pelvis minimum 5 views XR PELVIS W HIPS 5+ VWS BILAT [facility] Work Phone: Start: 11-24-2013 Screening for osteoporosis DEXA SCAN DISCUSSION [facility] Start: 2006 Administration of herpes zoster vaccine Zoster Vaccines (1 of 2) [facility] Start: 2006 Screening for malignant neoplasm of colon Flexible sigmoidoscopy [facility] Start: 2006 Zoster vaccine hzv live for subcutaneous use ZOSTER (SHINGLES) VACCINE (1 of 2) [facility] Start: 2001 Screening for malignant neoplasm of colon COLORECTAL CANCER SCREENING DISCUSSION [facility] Start: 1996 Lipid panel LIPID SCREENING [facility] Start: 1996 Screening for malignant neoplasm of breast [facility] Start: 1977 Screening for malignant neoplasm of cervix CERVICAL CANCER SCREENING DISCUSSION [facility] Start: 1974 Hepatitis C screening Hepatitis C Screening [facility] Start: 1968 Depression screening using PHQ-9 (Patient Health Questionnaire 9) score Depression Screening (PHQ-2/9) [facility] Start: 12-08-1959 History and physical examination, annual for health maintenance Wellness Visit [facility] Start: 1956 Hepatitis C screening HEPATITIS C VIRUS SCREENING [facility] Start: 1956 Potassium [Moles/volume] in Serum or Plasma POTASSIUM [facility] Start: 1956 Screening for malignant neoplasm of colon [facility] Start: 1956 Screening for osteoporosis Dexa Scan [facility] 24 hour urine [facility] Work Phone: Electrophoresis: [id number] [facility] Work Phone: Electrophoresis: [id number] [facility] Work Phone: Electrophoresis: beta-globulin [facility] Work Phone: Immunofixation for Urine [facility] Work Phone: Measurement of monoc lonal protein concentration [facility] Work Phone: Protein [Mass/volume ] in Urine [facility] Work Phone: Immunizations Immunization Date Immunization Notes Care Provider Hortencia macdonald No information available. Jolene Rodriguez LPN [facility] Work Phone: Payers Date Payer Category Payer Medicare [id number] 2022 Medicare [id number] 2022 Self-pay 2021 Medicare [id number] 2021 Medicare [id number] 1955 Unknown [id number] [id number] 1955 Unknown [id number] 2.16.8 [id number] 1955 Unknown [id number] 2.16. [id number] 1955 Unknown [id number] 2.16. [id number] 1948 Unknown [id number] 2.16. [id number] 1948 Unknown [id number] 2.16. [id number] 1948 Unknown [id number] 2.16. [id number] 1948 Unknown [id number] 2.16. [id number] Private Health Insurance Unknown [id number] 2.16.8 [id number] Social History Date Type Detail Facility Start: 07-18-2018 End: 07-18-2018 Assertion Unknown if ever smoked [facility] Work Phone: Start: 1955 Sex Assigned At Female F [facility] Start: 1955 Sex Assigned At Not on file [facility] Start: 07-23-2022 End: 08-02-2022 Exposure to SARS-CoV-2 (event) Not sure [facility] Start: 12-24-2014 History of Social function [facility] Start: 12-24-2014 Tobacco use panel [facility] History of Present illness Narrative 09-12-2023 Phyllis Espinal PT - 09/12/2023 1:00 PM EDT Note Date & Type Note Facility 09-12-2023 History of Presen t illness Narrative [facility] Evaluation Today's Date 09/12/2023 Patient Name: Amanda Faye Date of : 1955 Case Name: Osteoarthritis of right hip Functional Diagnosis: 1. Osteoarthritis of right hip, unspecified osteoarthritis type Clinical Information: Subjective Referring Diagnosis: Osteoarthritis of right hip Follow-up with physician: 09/23/2023 History of Present Illness Subjective History: Patient presents to physical therapy S/P VINOD R on 08/11/2023. She has been walking with walker and moving around frequently. She has been taking pain pills, tylenol extra strength, ice applications. She has stairs at home but she is staying at her sister's and she does not have to do stairs for now. Pain Scale Average Pain: 2/10 Pain at highest: 10/10 Social Support: Patient lives with others. Adventist, social, or cultural considerations to be made aware of before starting treatment: No Home Environment Current Home Environment: Setup: multi-level house Sleep Assessment Average Sleep: last night she slept good. Adventist, social, or cultural considerations to be made aware of before starting treatment: No Hip Right Hip Range of Motion: Flexion Active: 80 Abduction Active: 25 Gait: stiff leg and reduce hip flexion Knee Right Knee Range of Motion: WFL Muscle Strength: Flexion: 4+ Extension: 4+ Treatments: Physical Therapy Exercise Log - 09/12/23 1330 OTHER Precautions/Contraindications VINOD R on 08/11/2023 (avoid hip flexion >90) Therapeutic Exercise (77901) Intervention Nustep NV Parameters Quads set 5 x5 Intervention heel slides supine 10 flexion and abd Parameters bridging 10 Intervention LAQ 5 x10 Parameters sink exe 5 B Parameters Access Code: [email or web address] URL: [email or web address] Date: 09/12/2023 Prepared by: Phyllis Espinal Exercises - Supine Heel Slide - 1 x daily - 1 sets - 10 reps - Supine Quad Set - 1 x daily - 7 x weekly - 10 reps - 5 hold - Supine Bridge - 1 x daily - 1-3 sets - 10 reps - Supine Hip Abduction - 1 x daily - 7 x weekly - 3 sets - 10 reps - Standing Weight Shift Side to Side - 1 x daily - 1 sets - 10 reps - 3 hold - Seated Long Arc Quad - 1 x daily - 7 x weekly - 3 sets - 10 reps - Standing Hip Abduction with Unilateral Counter Support - 1 x daily - 1-3 sets - 10 reps - Standing Hip Extension with Unilateral Counter Support - 1 x daily - 1-3 sets - 10 reps - Standing March with Unilateral Counter Support - 1 x daily - 1-3 sets - 10 reps - Heel Toe Raises with Unilateral Counter Support - 1 x daily - 1-3 sets - 10 reps - Standing Knee Flexion with Counter Support - 1 x daily - 1-3 sets - 10 reps - Sit to Stand with Counter Support - 1 x daily - 1 sets - 10 reps PT Treatment Times Therex Total Time 20 Direct Treatment Time 20 Treatment Plan: Frequency of Visits: twice per week Duration: 4 weeks Interventions: Therapeutic Exercise (76957), Neuromuscular Re-Education (02605), Manual Therapy (10256), Gait Training (21023), and Hot/Cold Pack (86808) Rehab Potential: fair Goals: Physical Therapy Ortho Goals: Patient will safely, correctly and independently demonstrate the ability to perform a progressive HEP to achieve maximal rehabilitation potential and prevent this condition from recurring. Patient will improve Hip pain level 2 points from 2-10/10 to increase tolerance to do Functional activities. 4 weeks Patient will demonstrate increase Hip mobility for ease of hip motion. 4 weeks Patient will improve R Hip strength 4+/5 to increase tolerance to perform functional activities such as stairs. 4 weeks Patient will improve FOTO score to at least 74 (predicted) from 46to show MDC/MCII and expected functional outcome. 4 weeks Patient Education provided: Patient was educated about the condition, precautions (, and physical therapy plan of care. Provided with HEP. Clinical Impression: Pt is a 67 y.o. year old female who presented to the clinic with R VINOD. Upon assessment, pt has been found with the following impairments: Pain, decreased ROM; decreased strength, endurance and coordination; impaired gait, balance, tolerance to do activities. The documented impairments result in the following functional limitations: standing, walking, stairs, language therapist, bending, lifting, carrying and reaching, regular PA/exercise, functional mobility, ADLs/IADLs, recreational activities, sleep, driving, quality of life.The pt would benefit from skilled PT services focused on the above listed impairments and limitations in order to safely progress pt to their desired level of function. Pt to be discharged from OP PT services if/when goals are met, if they fail to make progress with conservative management in PT, if their level of progress plateaus, or if they do not maintain compliance with attendance or HEP. At this time, it is my clinical judgment that services are medically necessary. Phyllis Espinal, PT STATE LICENSE, [id number] documented in this encounter [facility] History of Present illness Narrative 08-02-2022 Yovnay Hicks MD - 08/02/2022 11:00 AM EST [...] Upper Extremities: deltoid bicep tricep Wrist ext Evening Anchor Hand IO right 5/5 5/5 5/5 5/5 [...] again for any future changes or developments. Yvoany Hicks MD Staff Counsel Department of Neurosurgery [facility] documented in this encounter [facility] Instructions 08-02-2022 Patient Instructions Note Date & Type Note Facility 08-02-2022 Instructions Elida Baker RN - 08/02/2022 11:00 AM EST Please call your preferred Physical Therapist to establish appointments. documented in this encounter [facility] Evaluation note Note Date & Type Note Facility Evaluation note [facility] Evaluation note Note Date & Type Note Facility documented in this encounter [facility] Evaluation note Note Date & Type Note Facility documented in this encounter [facility] Evaluation note Note Date & Type Note Facility documented in this encounter [facility] Evaluation note Note Date & Type Note Facility documented in this encounter [facility] Summary Purpose Family History No Family History [...] MD [address] [place] [address] Physical Therapy [place] [address] [address] Referral ID Status Reason Start Date Expiration Date V isits Requested Visits Authorized [id number] New Request 08/02/2022 08/27/2023 1 1 Scheduling Instructions [facility] [address] [facility], 2nd [place] [address] Fax [facility] (Neck and Back Therapy) [address] [place], [place] [phone] FAX [facility] [address] [place], [place] [phone] FAX Outpatient Rehabilitation [facility] [address] [place] [address] FAX [facility] [address] [place] [address] FAX Physical Therapy at [address] [address] FAX [facility] [address] [place], [place] [phone] FAX Continued on next page Outpatient Rehabilitation Outpatient [facility] [address] [place] [address] FAX [facility] [address] [facility], [address] [place], [place] [phone] FAX Specialty Diagnoses / Procedures Referred By Amirah foley Referred To Contact Rehabilitation Diagnoses Osteoarthritis of right hip, unspecified osteoarthritis type Jacqueline Tobin PA-C [address] [facility] [address] [place] [address] Rehab [place] [address] [address] [place] [address] Referral ID Status Reason Start Date Expiration Date V isits Requested Visits Authorized [id number] Authorized 09/01/2023 08/31/2024 1 1 Additional Source Comments INFORMATION SOURCE (unrecogn ized section and content) DATE CREATED AUTHOR AUTHOR'S ORGANIZ ATION 06/11/2018 [facility] DATE CREATED AUTHOR AUTHOR'S ORGANIZ ATION 08/21/2018 [facility] DATE CREATED AUTHOR AUTHOR'S ORGANIZ ATION 02/21/2019 [facility] DATE CREATED AUTHOR AUTHOR'S ORGANIZ ATION 08/13/2020 [employer] DATE CREATED AUTHOR AUTHOR'S ORGANIZ ATION 08/15/2020 [facility] DATE CREATED AUTHOR AUTHOR'S ORGANIZ ATION 06/05/2021 [facility] DATE CREATED AUTHOR AUTHOR'S ORGANIZ ATION 08/05/2022 [facility] DATE CREATED AUTHOR AUTHOR'S ORGANIZ ATION 09/10/2022 [facility] DATE CREATED AUTHOR AUTHOR'S ORGANIZ ATION 04/05/2023 [facility] Reason for Visit (unrecogniz ed section and content) Reason Comments New Patient Specialty Diagnoses / Procedures Referred By Contac t Referred To Contact Orthopaedic Surgery Diagnoses Spinal stenosis, cervical region Other spondylosis with radiculopathy, cervical region Other cervical disc degeneration, unspecified cervical region Lachelle Darby DO [address] [place] [address] Deb Tao MD, PhD [address] [place] [phone] Referral ID Status Reason Start Date Expiration Date V isits Requested Visits Authorized [id number] Pending Review 07/23/2022 08/17/2023 1 1 Reason Comments Physical Therapy Specialty Diagnoses / Procedures Referred By Contac t Referred To Contact Rehabilitation Diagnoses Osteoarthritis of right hip, unspecified osteoarthritis type Jacqueline Tobin PA-C [address] [place] [address] [place] [address] [place] [address] Referral ID Status Reason Start Date Expiration Date V isits Requested Visits Authorized [id number] Authorized 09/01/2023 08/31/2024 9 199 Care Teams (unrecognized sec tion and content) Bookmobile Driver Relationship Specialty Start Date End Date Aleksey Mckinney MD [address] [place] [address] PCP - General Family Medicine 08/02/22 Matias Rao MBBS Urology 03/01/13 Kike Rangel MD [address] [place] [address] [address] [place] [address] Urologist Urology 01/25/13 Book[employer] Driver Relationship Specialty Start Date End Date Aleksey Mckinney MD [address] [facility] [address] [place], [place] [phone] PCP - General Family Medicine 08/02/22 Matias Rao MBBS Urology 03/01/13 Kike Rangel MD [address] [place] [address] [address] [place] [phone] Urologist Urology 01/25/13 Book[employer] Driver Relationship Specialty Start Date End Date Aleksey Mckinney MD [address] [facility] [address] [place], [place] [address] PCP - General Family Medicine 12/21/22 Bookmobile Driver Relationship Specialty Start Date End Date Aleksey Mckinney MD [address] [facility] [address] [place], [place] [phone] PCP - General Family Medicine 12/21/22 Goals [...] BE BASED ON THE PRIMARY CLINICAL RECORDS. [facility]. provides no warranty or guarantee of the accuracy or completeness of information in this document.
== END | disposition home or self-care (01) ==
PROVIDERS: PCP Family Medicine; Visit Provider Orthopaedic Surgery
DX: M16.11 Unilateral primary osteoarthritis, right hip (principal)
CPT/HCPCS: 88305; 88311

== ENCOUNTER → 2024-05-21 | Outpatient (CLI) | payer MEDICARE, SELFPAY ==
[2024-05-21 18:07] LABS: ALB/GLOB Ratio 1.2 RATIO (0.9-2.4); AST(SGOT) 16 U/L (15-37); Alanine Aminotransfer ALT/SGPT 30 U/L (13-56); Albumin, Serum 3.8 g/dL (3.2-5.0); Alkaline Phosphatase 70 U/L (45-117); Anion Gap 6 (5-15); BUN 20 mg/dL (7-18); BUN/Creat Ratio 21.2 RATIO (10-20); Calcium,Total 9.6 mg/dL (8.5-10.1); Chloride 109 mmol/L (98-107); Creatinine, Serum 0.94 mg/dL (0.55-1.02); EST Glomerular Filtration Rate 63 mL/min (>60); Est Glom Filt Rate - Afr Amer 76 mL/min (>60); Globulin 3.2 g/dL (2.2-4.2); Glucose 104 mg/dL (74-106); Potassium 3.7 mmol/L (3.5-5.1); Sodium Level 142 mmol/L (136-145)
[2024-05-23 05:08] LABS: Insulin Level 4.5 uIU/mL (2.6-24.9)
== END | disposition home or self-care (01) ==
LOC: MFPLAB 15:59
PROVIDERS: PCP Family Medicine; Visit Provider Family Medicine
DX: E16.2 Hypoglycemia, unspecified (principal)
CPT/HCPCS: 36415; 80053; 83525